=== PATIENT | female | born 1965 | race American Indian/Alaskan Native ===

== ENCOUNTER 2018-06-09 21:52 | Emergency (ER) | payer SELFPAY ==
[2018-06-09 23:58] LABS: Bilirubin,Urine NEG (Negative); Blood,Urine SM (Negative); Color,Urine Straw (Yellow); Mucus,Urine FEW /HPF; Protein,Urine <15 mg/dL mg/dL (Negative); Urobilinogen,Urine < 2.0 mg/dL (<2.0)
[2018-06-10] MEDS ORDERED: MACROBID PO ONE (00:46)
[2018-06-10] MEDS ORDERED: IBUPROFEN PO ONE (00:46)
[2018-06-10] MEDS ORDERED: PYRIDIUM PO ONE (00:47)
--- NOTE | 2018-06-10 00:51 | Emergency Department Report ---
ED Female HPI - General Chief complaint: Urogenital-Female Stated complaint: DIFFICULTY URINATING Time Seen by Provider: 06/10/18 00:45 Source: patient Mode of arrival: Ambulatory Limitations: No Limitations - History of Present Illness Initial comments: pt is a 52 y/o aaf who presents for dysuria frequency and urgency x 4 days with stinging with urination pt denies hematuria no fever no chills no n/v pain is 3/10 exacerbated by voiding relieved by nothing . Complaint: dysuria Onset/Timin -: days(s) Radiation: non-radiating Severity: moderate Severity scale (0 -10): 5 Consistency: intermittent Improves with: none Worsens with: urination Are you Now?: No Associated Symptoms: dysuria - Related Data Sexually active: No Previous Rx's Medication Instructions Recorded Last Taken Type Ibuprofen 800 mg PO TID PRN #30 tablet 06/10/18 Unknown Rx Nitrofurantoin Monohyd/M-Cryst 100 mg PO BID 7 Days #14 capsule 06/10/18 Unknown Rx [Macrobid 100 mg Capsule] Phenazopyridine [Pyridium] 200 mg PO TID 2 Days #6 tab 06/10/18 Unknown Rx Allergies Allergy/AdvReac Type Severity Reaction Status Date / Time No Known Allergies Allergy Unverified 06/09/18 21:54 ED Review of Systems ROS: Stated complaint: DIFFICULTY URINATING Other details as noted in HPI Constitutional: denies: chills, fever Eyes: denies: eye pain, eye discharge, vision change ENT: denies: ear pain, throat pain Respiratory: denies: cough, shortness of breath, wheezing Cardiovascular: denies: chest pain, palpitations Endocrine: no symptoms reported Gastrointestinal: denies: abdominal pain, nausea, diarrhea Genitourinary: dysuria, frequency. denies: urgency, discharge Musculoskeletal: denies: back pain, joint swelling, arthralgia Skin: denies: rash, lesions Neurological: denies: headache, weakness, paresthesias Psychiatric: denies: anxiety, depression Hematological/Lymphatic: denies: easy bleeding, easy bruising ED Past Medical Hx - Social History Smoking Status: Never Smoker - Medications Home Medications: Home Medications Medication Instructions Recorded Confirmed Last Taken Type Ibuprofen 800 mg PO TID PRN #30 tablet 06/10/18 Unknown Rx Nitrofurantoin Monohyd/M-Cryst 100 mg PO BID 7 Days #14 capsule 06/10/18 Unknown Rx [Macrobid 100 mg Capsule] Phenazopyridine [Pyridium] 200 mg PO TID 2 Days #6 tab 06/10/18 Unknown Rx ED Physical Exam - General Limitations: No Limitations General appearance: alert, in no apparent distress - Head Head exam: Present: atraumatic, normocephalic - Eye Eye exam: Present: normal appearance, PERRL, EOMI Pupils: Present: normal accommodation - ENT ENT exam: Present: mucous membranes moist - Neck Neck exam: Present: normal inspection, tenderness, full ROM - Respiratory Respiratory exam: Present: normal lung sounds bilaterally. Absent: respiratory distress, wheezes, stridor, chest wall tenderness - Cardiovascular Cardiovascular Exam: Present: regular rate, normal rhythm, normal heart sounds. Absent: systolic murmur, diastolic murmur, rubs, gallop - GI/Abdominal GI/Abdominal exam: Present: soft, normal bowel sounds. Absent: distended, tenderness, guarding, rebound, rigid, bruit, hernia - Rectal Rectal exam: Present: deferred - Extremities Exam Extremities exam: Present: normal inspection, full ROM. Absent: tenderness, pedal edema - Back Exam Back exam: Present: normal inspection, full ROM. Absent: tenderness, CVA tenderness (R), CVA tenderness (L), muscle spasm, paraspinal tenderness, rash noted - Neurological Exam Neurological exam: Present: alert, oriented X3 - Psychiatric Psychiatric exam: Present: normal affect, normal mood - Skin Skin exam: Present: warm, dry, intact, normal color. Absent: rash ED Course Vital Signs 06/09/18 06/09/18 22:09 22:28 Temperature 98.1 F 98.1 F Pulse Rate 95 H 95 H Respiratory 20 20 Rate Blood Pressure 144/76 Blood Pressure 144/76 [Right] O2 Sat by Pulse 98 98 Oximetry ED Medical Decision Making - Lab Data Lab Results 06/09/18 Range/Units 22:37 Urine Color Straw (Yellow) Urine Turbidity Clear (Clear) Urine pH 6.0 (5.0-7.0) Ur Specific Dickey 1.013 (1.003-1.030) Urine Protein <15 mg/dl (Negative) mg/dL Urine Glucose (UA) Neg (Negative) mg/dL Urine Ketones Neg (Negative) mg/dL Urine Blood Sm (Negative) Urine Nitrite Neg (Negative) Urine Bilirubin Neg (Negative) Urine Urobilinogen < 2.0 (<2.0) mg/dL Ur Leukocyte Esterase Mod (Negative) Urine WBC (Auto) 50.0 H (0.0-6.0) /HPF Urine RBC (Auto) 5.0 (0.0-6.0) /HPF U Epithel Cells (Auto) 1.0 (0-13.0) /HPF Urine Mucus Few /HPF - Medical Decision Making this is a uti plan. macrobid, pyridium , ibuprofen pt will follow up with pcp in 2-3 days return to ed if symptoms worsen, pt verbalized agreement and understanding of discharge plan, pt for dc to home in stable condition at this time with rx for pyridium macrobid ibuprofen, pt verbalized agreement and understanding with discharge plan. Critical care attestation.: If time is entered above; I have spent that time in minutes in the direct care of this critically ill patient, excluding procedure time. ED Disposition Clinical Impression: UTI (urinary tract infection) Qualifiers: Urinary tract infection type: acute cystitis Hematuria presence: without hematuria Qualified Code(s): N30.00 - Acute cystitis without hematuria Disposition: DC-01 TO HOME OR SELFCARE Is pt being admited?: No Does the pt Need Aspirin: No Condition: Stable Instructions: Urinary Tract Infection in Women (ED) Prescriptions: Ibuprofen 800 mg PO TID PRN #30 tablet PRN Reason: pain Nitrofurantoin Monohyd/M-Cryst [Macrobid 100 mg Capsule] 100 mg PO BID 7 Days #14 capsule Phenazopyridine [Pyridium] 200 mg PO TID 2 Days #6 tab Referrals: JALEEL RUIZ MD [Primary Care Provider] - 3-5 Days Forms: Work/School Release Form(ED) Time of Disposition: 01:00
[2018-06-10 01:31] VITALS: BP 135/69
== END 2018-06-10 01:32 | disposition home or self-care (01) ==
LOC: ED 21:52
DX: N30.00 Acute cystitis without hematuria (principal)
CPT/HCPCS: 81001; 99283

== ENCOUNTER 2018-08-25 12:52 | Emergency (ER) | payer OTHER ==
--- NOTE | 2018-08-25 13:49 | Emergency Department Report ---
Blank Doc - Documentation Documentation: 52 y o female presents to ed cc of right anklpe pain and swelling x 2 days states she must have twisted it at work able to ambulate xr ACC veal
[2018-08-25 13:52] VITALS: BP 146/76
--- NOTE | 2018-08-25 15:12 | Emergency Department Report ---
ED Lower Extremity HPI - General Chief Complaint: Extremity Injury, Lower Stated Complaint: RT FOOT PAIN Time Seen by Provider: 08/25/18 13:47 Source: patient Mode of arrival: Ambulatory Limitations: No Limitations - History of Present Illness Initial Comments: 52-year-old female who twisted her right ankle mild swelling mild pain MD Complaint: ankle injury -: days(s) (2) Injury: Ankle: Right Type of Injury: inversion, eversion Place: work Severity: mild Worsens With: weight bearing Associated Symptoms: swelling. denies: snap/pop sensation - Related Data Previous Rx's Medication Instructions Recorded Last Taken Type Ibuprofen [Ibuprofen 800] 800 mg PO TID PRN #30 tablet 06/10/18 Unknown Rx Nitrofurantoin Monohyd/M-Cryst 100 mg PO BID 7 Days #14 capsule 06/10/18 Unknown Rx [Macrobid 100 mg Capsule] Phenazopyridine [Pyridium] 200 mg PO TID 2 Days #6 tab 06/10/18 Unknown Rx Ibuprofen [Motrin 800 MG tab] 800 mg PO TID 5 Days #15 tablet 08/25/18 Unknown Rx Allergies Allergy/AdvReac Type Severity Reaction Status Date / Time No Known Allergies Allergy Verified 08/25/18 12:54 ED Review of Systems ROS: Stated complaint: RT FOOT PAIN Other details as noted in HPI Constitutional: denies: fever, malaise Skin: denies: rash, lesions Neurological: denies: numbness, paresthesias ED Past Medical Hx - Past Medical History Previous Medical History?: Yes Hx Hypertension: Yes - Surgical History Hx Cholecystectomy: Yes - Social History Smoking Status: Current Every Day Smoker Substance Use Type: None - Medications Home Medications: Home Medications Medication Instructions Recorded Confirmed Last Taken Type Ibuprofen [Ibuprofen 800] 800 mg PO TID PRN #30 tablet 06/10/18 Unknown Rx Nitrofurantoin Monohyd/M-Cryst 100 mg PO BID 7 Days #14 capsule 06/10/18 Unknown Rx [Macrobid 100 mg Capsule] Phenazopyridine [Pyridium] 200 mg PO TID 2 Days #6 tab 06/10/18 Unknown Rx Ibuprofen [Motrin 800 MG tab] 800 mg PO TID 5 Days #15 tablet 08/25/18 Unknown Rx ED Physical Exam - General Limitations: No Limitations General appearance: alert, in no apparent distress - Head Head exam: Present: atraumatic, normocephalic - Eye Eye exam: Present: normal appearance. Absent: scleral icterus, conjunctival injection - ENT ENT exam: Present: mucous membranes moist - Neck Neck exam: Present: normal inspection, full ROM - Respiratory Respiratory exam: Absent: respiratory distress - Expanded Lower Extremity Exam Right Ankle exam: Present: full ROM, tenderness, swelling. Absent: abrasion, laceration, ecchymosis, deformity, crepidus, dislocation, erythema, anterior draw sign Foot/Toe exam: Present: normal inspection, full ROM. Absent: tenderness Neuro vascular tendon exam: Present: no vascular compromise. Absent: pulse deficit ED Course Vital Signs 08/25/18 13:47 Temperature 98.2 F Pulse Rate 89 Respiratory 20 Rate Blood Pressure 146/76 O2 Sat by Pulse 99 Oximetry ED Lower Extremity MDM - Radiology Data Radiology results: image reviewed interpreted by me: Three-view ankle radiographs right my interpretation no fracture and no subluxation mild soft tissue swelling Mild right ankle sprain Chaz wrap provided in the ED. Chaz wrap was applied to the affected extremity under my supervision. After application the extremity was neurovascularly intact with acceptable alignment. Critical care attestation.: If time is entered above; I have spent that time in minutes in the direct care of this critically ill patient, excluding procedure time. ED Disposition Clinical Impression: Right ankle sprain Disposition: - TO HOME OR SELFCARE Is pt being admited?: No Does the pt Need Aspirin: No Condition: Stable Prescriptions: Ibuprofen [Motrin 800 MG tab] 800 mg PO TID 5 Days #15 tablet Referrals: ANGELIQUE HOLM MD [Staff Physician] - 3-5 Days
--- NOTE | 2018-08-25 15:13 | XRay Report ---
PROCEDURE: XR ANKLE 3+V RT TECHNIQUE: Right ankle radiographs, AP, lateral, and oblique views. HISTORY: pain COMPARISONS: None . FINDINGS: No fracture or dislocation. Ankle mortise and talar dome are intact. IMPRESSION: No fracture or dislocation . This document is electronically signed by Anai Sears MD., August 25 2018 04:10:40 PM ET
== END 2018-08-25 16:13 | disposition home or self-care (01) ==
LOC: ED 12:52
DX: S93.401A Sprain of unspecified ligament of right ankle, initial encounter (principal); I10 Essential (primary) hypertension; F17.200 Nicotine dependence, unspecified, uncomplicated; Z90.49 Acquired absence of other specified parts of digestive tract; X50.1XXA Overexertion from prolonged static or awkward postures, initial encounter; Y93.89 Activity, other specified; Y92.69 Other specified industrial and construction area as the place of occurrence of the external cause; Y99.8 Other external cause status

== ENCOUNTER 2020-01-07 07:29 | Day surgery (SDC) | payer OTHER ==
[2020-01-07] MEDS ORDERED: ASPIRIN EC 325 MG TAB PO ONE (08:19)
[2020-01-07 08:45] LABS: Basophils % (Auto) 0.5 % (0.0-1.8); Eosinophils # (Auto) 0.1 K/mm3 (0.0-0.4); Hematocrit 39.6 % (30.3-42.9); Hemoglobin 13.3 gm/dl (10.1-14.3); Lymphocytes # (Auto) 1.7 K/mm3 (1.2-5.4); Lymphocytes % (Auto) 29.8 % (13.4-35.0); Mean Corpuscular HGB Conc 34 % (30-34); Mean Corpuscular Volume 87 fl (79-97); Monocytes # (Auto) 0.7 K/mm3 (0.0-0.8); Platelet Count 311 K/mm3 (140-440); Red Blood Count 4.53 M/mm3 (3.65-5.03); Red Cell Distribution Width 15.2 % (13.2-15.2)
[2020-01-07 08:54] LABS: INR 0.91 (0.87-1.13)
[2020-01-07 08:56] LABS: Partial Thromboplastin Time 25.6 Sec. (24.2-36.6)
[2020-01-07 08:59] LABS: BUN/Creatinine Ratio 17; Blood Urea Nitrogen 10 mg/dL (7-17); Calcium 9.5 mg/dL (8.4-10.2); Hemolysis Index 4
[2020-01-07] MEDS ORDERED: SODIUM CHLORIDE 0.9% 500 ML 500 ML IV SCH (09:00)
[2020-01-07] MEDS ORDERED: MIDAZOLAM 2 MG/2 ML INJ ONE (09:53)
[2020-01-07] MEDS ORDERED: HEPARIN 10,000 UNITS/10 ML VIAL ONE (09:53)
[2020-01-07] MEDS ORDERED: VERAPAMIL 5 MG/2 ML INJ ONE (09:53)
[2020-01-07] MEDS ORDERED: HEPARIN/NS 5000 UNIT/500ML 1,000 ML IR ONE (09:53)
[2020-01-07] MEDS ORDERED: fentaNYL 100 MCG/2 ML INJ ONE (09:53)
[2020-01-07] MEDS ORDERED: LIDOCAINE (2%) 20 MG/1 ML VIAL 20 ML MDV INFILTRATI ONE (09:54)
[2020-01-07] MEDS: NITROGLYCERIN SYRINGE 3 ML ONE ×2 (10:38→10:50)
--- NOTE | 2020-01-07 11:20 | Cardiac Catherization Report ---
REFERRING PHYSICIAN: Praveen Hernández MD INDICATION FOR PROCEDURE: The patient is a pleasant 54-year-old female with multiple risk factors, abnormal nuclear stress test, referred for left heart catheterization. Risks, benefits, potential alternatives explained at length prior to obtaining informed consent. PROCEDURE IN DETAIL: The patient was brought to catheterization lab in a postabsorptive state, prepped and draped in sterile fashion. Fredo's test in right hand was normal. A 2 mL of 2% lidocaine used to anesthetize the right wrist. A standard 6-Nepali hydrophilic sheath used to cannulate the right radial artery via modified Seldinger technique. A JL3.5 catheter used to engage the left main. No dampening or ventricularization. Cineangiography performed in all projections. JR4 catheter was used to cross the aortic valve under fluoroscopic guidance. Left ventriculography performed in 30 CARTAGENA and 30 LATVIAN projections via hand injections, catheter flushed. Manual pullback performed with continuous pressure monitoring. Catheter used to engage the right coronary. No dampening or ventricularization. Cineangiography performed in all projections. Next, catheter removed from the body of wire, sheath removed. Manual pressure was used to achieve hemostasis. DATA: The patient remained in normal sinus rhythm throughout the procedure. Aortic pressure is 140/80, LV pressure is 140, LVP of 12 mmHg. Left ventriculography reveals normal systolic performance, estimated ejection fraction of 55-60%. No evidence of aortic stenosis or significant mitral regurgitation. CORONARY ANATOMY: This is a right dominant system. Right coronary is a moderate to large vessel, courses AV groove, distally bifurcates into posterior descending artery and posterolateral branch. No disease noted. Left main is without significant disease, bifurcates into left anterior descending and left circumflex. Left circumflex is a moderate sized vessel, courses AV groove, diminutive to AV groove, circ, large OM trunk. No significant disease. LAD is a moderate sized vessel, courses anterior intergroove, wraps around the apex, no significant disease, but there is normal tapering in a distal LAD, which is a small vessel, but no obstructive disease identified. No diagonal disease noted. CONCLUSIONS: 1. No angiographic evidence of significant epicardial coronary disease in this right dominant system. 2. Normal left ventricular systolic performance with estimated ejection fraction of 55-60%. 3. No evidence of aortic stenosis. 4. Normal LVEDP. The patient is clinically stable, chest pain free. Would add Ranexa to rule out microvascular angina. Continue risk factor modification, weight loss, diet modification, primary and secondary prevention measures, standard radial care. Results of procedure explained to the patient at length. All questions addressed. Follow up with Dr. Hernández in the office. JOB# [id number] SBM/NTS
[2020-01-07 14:01] VITALS: BP 116/66
--- NOTE | 2020-01-07 14:19 | Short Stay Summary ---
Short Stay Documentation Date of service: 01/07/20 - History H&P: obtained from office - Allergies and Medications Current Medications: Allergies No Known Allergies Allergy (Verified 08/25/18 12:54) Home Medications Medication Instructions Recorded Confirmed Last Taken Type Aspirin EC [Halfprin EC] 81 mg PO DAILY 01/07/20 01/07/20 01/06/20 History 81 mg Lisinopril/Hydrochlorothiazide 25 mg PO DAILY 01/07/20 01/07/20 01/06/20 History [Zestoretic 10-12.5 mg Tablet] 25 mg Metoprolol SUCCINATE ER TAB 25 mg PO DAILY 01/07/20 01/07/20 01/06/20 History 25 mg Ranolazine [Ranexa] 500 mg PO BID #120 tab.er.12h 01/07/20 Unknown Rx Active Medications Sodium Chloride (Nacl 0.9% 500 Ml) 500 mls @ 50 mls/hr IV DIRECT ILIANA Stop: 01/07/20 18:59 Last Admin: 01/07/20 09:34 Dose: 50 mls/hr Documented by: - Brief post op/procedure progress note Date of procedure: 01/07/20 Pre-op diagnosis: abnormal stress test Post-op diagnosis: other (normal coronaries) Anesthesia: local Estimated blood loss: none Condition: stable - Disposition Condition at discharge: Good Disposition: DC-01 TO HOME OR SELFCARE - Discharge Diagnoses (1) Normal coronary angiogram Status: Chronic (2) HTN (hypertension) Status: Chronic (3) Paroxysmal atrial fibrillation Status: Chronic Short Stay Discharge Plan Activity: advance as tolerated Diet: low fat, low cholesterol, low salt Wound: open to air, keep clean and dry, per your surgeon's advice Additional Instructions: follow upwith Primary Medical Doctor in 1 week, return to Emergency Room (ER) for medical emergencies. Follow up with: JALEEL RUIZ MD [Primary Care Provider] - 7 Days Prescriptions: Ranolazine [Ranexa] 500 mg PO BID #120 tab.er.12h
== END 2020-01-07 07:30 | disposition home or self-care (01) ==
LOC: CATHLABREC 07:29
PROVIDERS: ATTEND Internal Medicine
DX: R94.39 Abnormal result of other cardiovascular function study (principal); I10 Essential (primary) hypertension; I48.0 Paroxysmal atrial fibrillation; E66.9 Obesity, unspecified; Z98.890 Other specified postprocedural states; Z83.3 Family history of diabetes mellitus; Z79.899 Other long term (current) drug therapy; Z79.82 Long term (current) use of aspirin; Z90.49 Acquired absence of other specified parts of digestive tract; Z87.440 Personal history of urinary (tract) infections; Z87.442 Personal history of urinary calculi; Z68.43 Body mass index [BMI] 50.0-59.9, adult; Z82.49 Family history of ischemic heart disease and other diseases of the circulatory system
CPT/HCPCS: 36415; 80048; 85025; 85610; 85730; 93005; 93458; 99156; C1894; J1644; J2250; J3010; J7040; Q9967

== ENCOUNTER 2021-01-06 15:07 | Emergency (ER) | payer OTHER ==
[2021-01-06] MEDS ORDERED: ONDANSETRON 4 MG/2 ML INJ IV ONE (16:17)
[2021-01-06] MEDS ORDERED: SODIUM CHLORIDE 0.9% 1000 ML 1,000 ML IV ONE (16:17)
[2021-01-06 16:46] LABS: Basophils # (Auto) 0.1 K/mm3 (0.0-0.1); Basophils % (Auto) 0.8 % (0.0-1.8); Eosinophils # (Auto) 0.1 K/mm3 (0.0-0.4); Eosinophils % (Auto) 0.7 % (0.0-4.3); Hematocrit 43.1 % (30.3-42.9); Hemoglobin 14.6 gm/dl (10.1-14.3); Lymphocytes # (Auto) 1.4 K/mm3 (1.2-5.4); Lymphocytes % (Auto) 17.5 % (13.4-35.0); Mean Corpuscular HGB Conc 34 % (30-34); Mean Corpuscular Volume 88 fl (79-97); Monocytes # (Auto) 1.2 K/mm3 (0.0-0.8); Monocytes % (Auto) 15.1 % (0.0-7.3); Platelet Count 309 K/mm3 (140-440); Red Blood Count 4.92 M/mm3 (3.65-5.03); Red Cell Distribution Width 14.2 % (13.2-15.2)
[2021-01-06 17:05] LABS: Alanine Aminotransferase 22 units/L (7-56); Albumin 3.8 g/dL (3.9-5); Blood Urea Nitrogen 15 mg/dL (7-17); Calcium 9.5 mg/dL (8.4-10.2); Hemolysis Index 12
[2021-01-06 17:13] LABS: BUN/Creatinine Ratio 25
[2021-01-06] MEDS ORDERED: POTASSIUM CHLORIDE 10 MEQ 10 MEQ/100 ML BAG IV ONE (17:18)
--- NOTE | 2021-01-06 17:23 | Event Note ---
ED Screening Note Date of service: 01/06/21 Time: 17:21 ED Screening Note: 55-year-old -Y[place] female presents to the emergency room planing of nausea and vomiting since having outpatient gastro sleeve surgery on December 31. Patient states at that time she had a hernia repair. She reports a past medical history of hypertension obesity. She denies any abdominal pain. States that the Zofran they gave her is not helping. She denies any fever or chills. This initial assessment/diagnostic orders/clinical plan/treatment(s) is/are subject to change based on patients health status, clinical progression and re- assessment by fellow clinical providers in the ED. Further treatment and workup at subsequent clinical providers discretion. Patient/guardian urged not to elope from the ED as their condition may be serious if not clinically assessed and managed. Initial orders include: CBC CMP urinalysis INT IV Zofran IV fluids
[2021-01-06 18:03] LABS: Bacteria,Urine 3+ /HPF (Negative); Bilirubin,Urine NEG (Negative); Blood,Urine SM (Negative); Color,Urine Straw (Yellow); Hyaline Casts,Urine 4 /LPF; Mucus,Urine FEW /HPF; Protein,Urine <15 mg/dL mg/dL (Negative); Urobilinogen,Urine < 2.0 mg/dL (<2.0)
--- NOTE | 2021-01-06 18:07 | Emergency Department Report ---
ED N/V/D HPI - General Chief complaint: Nausea/Vomiting/Diarrhea Stated complaint: POST SURGERY, PAIN VOMITING Time Seen by Provider: 01/06/21 16:17 Source: patient Mode of arrival: Ambulatory Limitations: No Limitations - History of Present Illness Initial comments: The patient was evaluated in the emergency department for symptoms described in the history of present illness. He/she was evaluated in the context of the global COVID-19 pandemic, which necessitated consideration that the patient might be at risk for infection with the virus that causes COVID-19. Institutional protocols and algorithms that pertain to the evaluation of patients at risk for COVID-19 are in a state of rapid change based on information released by regulatory bodies including the CDC and federal and state organizations. These policies and algorithms were followed during the patient's care in the emergency department. Please note that these policies, procedures and recommendations changed on a rapid basis. 55-year-old -[place] female presents to the emergency room planing of nausea and vomiting since having outpatient gastro sleeve surgery and hiatal hernia repair on December 31. She reports a past medical history of hypertension and obesity. She denies any abdominal pain. States that the Zofran they gave her is not helping and Levsin. She denies any fever or chills. MD complaint: nausea, vomiting Onset/Timin -: week(s) Description of Vomiting: food contents, watery, bilious Associated Abdominal Pain: No Improves with: none Worsens with: eating Associated Symptoms: nausea/vomiting. denies: chest pain, cough, fever/chills, shortness of breath, syncope - Related Data Home Medications Medication Instructions Recorded Confirmed Last Taken Lisinopril/Hydrochlorothiazide 25 mg PO DAILY 01/07/20 01/06/21 01/06/21 [Zestoretic 10-12.5 mg Tablet] 1 tab Metoprolol SUCCINATE ER TAB 25 mg PO DAILY 01/07/20 01/06/21 01/06/21 25 mg Hyoscyamine Rapdis 0.125 mg 1 tab SL 6XD PRN 01/06/21 01/06/21 01/05/21 1 tab Tramadol ER (Nf) 1 tab PO 4XD PRN 01/06/21 01/06/21 Unknown Tylenol /Codeine # 3 tab 1 tab PO 4XD PRN 01/06/21 01/06/21 Unknown Allergies Allergy/AdvReac Type Severity Reaction Status Date / Time No Known Allergies Allergy Verified 01/06/21 15:13 ED Review of Systems ROS: Stated complaint: POST SURGERY, PAIN VOMITING Other details as noted in HPI Comment: All other systems reviewed and negative ED Past Medical Hx - Past Medical History Hx Hypertension: Yes Hx Congestive Heart Failure: No Hx Diabetes: No Hx Kidney Stones: Yes - Surgical History Hx Coronary Stent: No Hx Cholecystectomy: Yes - Social History Smoking Status: Never Smoker Substance Use Type: None - Medications Home Medications: Home Medications Medication Instructions Recorded Confirmed Last Taken Type Lisinopril/Hydrochlorothiazide 25 mg PO DAILY 01/07/20 01/06/21 01/06/21 History [Zestoretic 10-12.5 mg Tablet] 1 tab Metoprolol SUCCINATE ER TAB 25 mg PO DAILY 01/07/20 01/06/21 01/06/21 History 25 mg Hyoscyamine Rapdis 0.125 mg 1 tab SL 6XD PRN 01/06/21 01/06/21 01/05/21 History 1 tab Tramadol ER (Nf) 1 tab PO 4XD PRN 01/06/21 01/06/21 Unknown History Tylenol /Codeine # 3 tab 1 tab PO 4XD PRN 01/06/21 01/06/21 Unknown History ED Physical Exam - General Limitations: No Limitations General appearance: alert, in no apparent distress - Head Head exam: Present: atraumatic, normocephalic - Eye Eye exam: Present: normal appearance - ENT ENT exam: Present: mucous membranes moist - Neck Neck exam: Present: normal inspection - Respiratory Respiratory exam: Present: normal lung sounds bilaterally. Absent: respiratory distress - Cardiovascular Cardiovascular Exam: Present: regular rate, normal rhythm. Absent: systolic murmur, diastolic murmur, rubs, gallop - GI/Abdominal GI/Abdominal exam: Present: soft, normal bowel sounds. Absent: distended, tenderness, guarding - Extremities Exam Extremities exam: Present: normal inspection. Absent: pedal edema - Back Exam Back exam: Present: normal inspection, full ROM - Neurological Exam Neurological exam: Present: alert, oriented X3, CN II-XII intact, normal gait - Psychiatric Psychiatric exam: Present: normal affect, normal mood - Skin Skin exam: Present: warm, dry, intact, normal color. Absent: rash ED Course Vital Signs 01/06/21 01/06/21 01/06/21 15:11 16:06 16:17 Temperature 98.5 F Pulse Rate 111 H 89 Respiratory 18 18 18 Rate Blood Pressure 147/74 Blood Pressure [Left] O2 Sat by Pulse 99 99 Oximetry 01/06/21 01/06/21 01/06/21 16:18 17:01 18:01 Temperature Pulse Rate 95 H 88 94 H Respiratory 19 22 19 Rate Blood Pressure 132/78 130/68 Blood Pressure 132/78 [Left] O2 Sat by Pulse 100 100 97 Oximetry 01/06/21 19:01 Temperature Pulse Rate 95 H Respiratory 17 Rate Blood Pressure 129/68 Blood Pressure [Left] O2 Sat by Pulse Oximetry - Consultations Consultation #1: 01/06/21 19:[address]Amir Medrano patient surgery he recommends replacing her electrolytes possibly with thiamine or banana bag. States for her to take Levsin Zofran and to follow-up with his clinic the next 2 to 3 days. ED Medical Decision Making - Lab Data Result diagrams: 01/06/21 16:30 01/06/21 16:30 - Medical Decision Making 55-year-old -[place] female presents to the emergency room planing of nausea and vomiting since having outpatient gastro sleeve surgery and hiatal hernia repair on December 31. She reports a past medical history of hypertension and obesity. She denies any abdominal pain. States that the Zofran they gave her is not helping and Levsin. She denies any fever or chills. CBC CMP lipase urinalysis. Spoke to Dr.Amir Medrano patient surgery he recommends replacing her electrolytes possibly with thiamine or banana bag. States for her to take Levsin Zofran and to follow-up with his clinic the next 2 to 3 days. It was noted that patient's potassium was 2.7. Will correct with banana bag. And Zofran. Critical care attestation.: If time is entered above; I have spent that time in minutes in the direct care of this critically ill patient, excluding procedure time. ED Disposition Clinical Impression: Nausea & vomiting Disposition: 01 HOME / SELF CARE / HOMELESS Is pt being admited?: No Does the pt Need Aspirin: No Condition: Stable Instructions: Nausea and Vomiting, Adult, Bmna-mt-Demy Additional Instructions: Please be sure to take your medications and your supplements. Follow-up with your surgeon in the next 2 to 3 days. Referrals: Nanda Sow [Other] - 3-5 Days Forms: Work/School Release Form(ED)
[2021-01-06] MEDS ORDERED: THIAMINE 100 MG, FOLIC ACID 1 MG, MULTIPLE VITAMIN INJ, ADULT 10 ML in SODIUM CHLORIDE ... IV ONE (19:00)
[2021-01-06 20:47] VITALS: BP 143/67
== END 2021-01-06 20:46 | disposition home or self-care (01) ==
LOC: ED 15:07
DX: R11.2 Nausea with vomiting, unspecified (principal); I10 Essential (primary) hypertension; Z87.442 Personal history of urinary calculi; Z98.890 Other specified postprocedural states
CPT/HCPCS: 36415; 80053; 81001; 83690; 85025; 96361; 96365; 96366; 96375; 99283; J2405; J3411; J3480; J7030; 96368

== ENCOUNTER 2021-01-10 23:48 | Emergency (ER) | payer OTHER ==
[2021-01-11] MEDS ORDERED: FAMOTIDINE 20 MG/2 ML INJ IV ONE (00:41)
[2021-01-11] MEDS ORDERED: PROCHLORPERAZINE EDISYLATE 10 MG/2 ML VIAL IV ONE (00:41)
[2021-01-11] MEDS ORDERED: SODIUM CHLORIDE 0.9% 1000 ML 1,000 ML IV ONE (00:41)
[2021-01-11] MEDS ORDERED: diphenhydrAMINE 50 MG/ML VIAL IV ONE (00:41)
--- NOTE | 2021-01-11 00:44 | Event Note ---
ED Screening Note Date of service: 01/11/21 Time: 00:42 ED Screening Note: 55-year-old female patient (post-op day #12 s/p gastric sleeve surgery) with history of hypertension presents to the emergency department with complaints of progressively worsening chest pain, nausea, and vomiting. Patient was evaluated in this ED for similar symptoms last week. Surgery was performed on 12/30/20 at a "private hospital." Taking Zofran at home with no relief. General: Awake, appropriately interactive. Moaning, rocking back and forth. Neck: Supple. Full range of motion intact. Cardiovascular: Normal peripheral perfusion. Pulmonary: No respiratory distress. Patient is speaking normally without use of accessory muscles. Skin: No apparent rashes or lesions. Neurological: No facial asymmetry. Speech is clear. Follows commands. Patient is alert and oriented. Musculoskeletal: Moves all four extremities spontaneously with normal range of motion. Psych: Cooperative. Appropriate mood and affect. Labs ordered. EKG ordered. IV fluids and antiemetics ordered. Imaging deferred to additional ED providers following full history and complete physical exam. I have greeted and performed a focused rapid initial assessment of this patient. A comprehensive ED assessment and evaluation of the patient, analysis of all test results, and completion of the medical decision-making process will be conducted by additional ED providers. This initial assessment/diagnostic orders/clinical plan/treatment(s) is/are subject to change based on patients health status, clinical progression and re-assessment. Further treatment and workup at subsequent clinical provider's discretion. Patient/guardian urged not to elope from the ED as their condition may be serious if not clinically assessed and managed.
[2021-01-11 00:59] LABS: Basophils # (Auto) 0.1 K/mm3 (0.0-0.1); Basophils % (Auto) 0.9 % (0.0-1.8); Eosinophils % (Auto) 0.1 % (0.0-4.3); Hematocrit 41.7 % (30.3-42.9); Hemoglobin 14.3 gm/dl (10.1-14.3); Lymphocytes # (Auto) 1.3 K/mm3 (1.2-5.4); Lymphocytes % (Auto) 20.3 % (13.4-35.0); Mean Corpuscular HGB Conc 34 % (30-34); Mean Corpuscular Volume 86 fl (79-97); Monocytes # (Auto) 0.6 K/mm3 (0.0-0.8); Monocytes % (Auto) 10.4 % (0.0-7.3); Platelet Count 362 K/mm3 (140-440); Red Blood Count 4.85 M/mm3 (3.65-5.03); Red Cell Distribution Width 14.2 % (13.2-15.2)
[2021-01-11 01:24] LABS: Alanine Aminotransferase 20 units/L (7-56); Albumin 4.4 g/dL (3.9-5); BUN/Creatinine Ratio 11; Blood Urea Nitrogen 10 mg/dL (7-17); Calcium 10.2 mg/dL (8.4-10.2); Hemolysis Index 2
--- NOTE | 2021-01-11 01:49 | XRay Report ---
CHEST 1 VIEW 01/11/2021 12:31 AM INDICATION / CLINICAL INFORMATION: chest pain. COMPARISON: None available. FINDINGS: SUPPORT DEVICES: None. HEART / MEDIASTINUM: No significant abnormality. LUNGS / PLEURA: No significant pulmonary or pleural abnormality. No pneumothorax. ADDITIONAL FINDINGS: Multiple surgical clips are noted in the upper abdomen. IMPRESSION: 1. No acute findings. Signer Name: Sarkis Thomason DO Signed: 01/11/2021 1:45 AM Workstation Name: [id number]
[2021-01-11] MEDS ORDERED: POTASSIUM CHLORIDE ER 20 MEQ TAB PO ONE (02:26)
--- NOTE | 2021-01-11 04:09 | Emergency Department Report ---
ED N/V/D HPI - General Chief complaint: Nausea/Vomiting/Diarrhea Stated complaint: VOMITING THROAT BURNING GENERAL WEAKNESS Time Seen by Provider: 01/11/21 02:03 Source: patient Mode of arrival: Ambulatory Limitations: No Limitations - History of Present Illness Initial comments: 55-year-old female presents to ED with nausea, vomiting, throat burning. Patient is status post gastric sleeve and hernia repair surgery on 12/30/2020. Patient was seen for same here in this ED 4 days ago. At that time patient was given IV fluids, potassium, pain relief and nausea relief. Patient states she has an appointment with her surgeon, Dr Nichole, in the morning, however she began having nausea and vomiting again tonight. Patient feels as though she may be dehydrated. MD complaint: nausea, vomiting -: Last night Associated Abdominal Pain: No Severity: moderate Consistency: constant Improves with: none Worsens with: none Context: recent surgery/procedure Associated Symptoms: denies: fever/chills - Related Data Home Medications Medication Instructions Recorded Confirmed Last Taken Lisinopril/Hydrochlorothiazide 25 mg PO DAILY 01/07/20 01/06/21 01/06/21 [Zestoretic 10-12.5 mg Tablet] 1 tab Metoprolol SUCCINATE ER TAB 25 mg PO DAILY 01/07/20 01/06/21 01/06/21 25 mg Hyoscyamine Rapdis 0.125 mg 1 tab SL 6XD PRN 01/06/21 01/06/21 01/05/21 1 tab Tramadol ER (Nf) 1 tab PO 4XD PRN 01/06/21 01/06/21 Unknown Tylenol /Codeine # 3 tab 1 tab PO 4XD PRN 01/06/21 01/06/21 Unknown Allergies Allergy/AdvReac Type Severity Reaction Status Date / Time No Known Allergies Allergy Verified 01/06/21 15:13 ED Review of Systems ROS: Stated complaint: VOMITING THROAT BURNING GENERAL WEAKNESS Other details as noted in HPI Comment: All other systems reviewed and negative Constitutional: denies: fever Gastrointestinal: nausea, vomiting. denies: diarrhea ED Past Medical Hx - Past Medical History Hx Hypertension: Yes Hx Congestive Heart Failure: No Hx Diabetes: No Hx Kidney Stones: Yes - Surgical History Hx Coronary Stent: No Hx Cholecystectomy: Yes Additional Surgical History: gastric sleeve, hernia repair - Social History Smoking Status: Never Smoker Substance Use Type: None - Medications Home Medications: Home Medications Medication Instructions Recorded Confirmed Last Taken Type Lisinopril/Hydrochlorothiazide 25 mg PO DAILY 01/07/20 01/06/21 01/06/21 History [Zestoretic 10-12.5 mg Tablet] 1 tab Metoprolol SUCCINATE ER TAB 25 mg PO DAILY 01/07/20 01/06/21 01/06/21 History 25 mg Hyoscyamine Rapdis 0.125 mg 1 tab SL 6XD PRN 01/06/21 01/06/21 01/05/21 History 1 tab Tramadol ER (Nf) 1 tab PO 4XD PRN 01/06/21 01/06/21 Unknown History Tylenol /Codeine # 3 tab 1 tab PO 4XD PRN 01/06/21 01/06/21 Unknown History ED Physical Exam - General Limitations: No Limitations General appearance: alert, in no apparent distress - Head Head exam: Present: atraumatic, normocephalic - Eye Eye exam: Present: normal appearance, EOMI - ENT ENT exam: Present: mucous membranes moist - Neck Neck exam: Present: normal inspection - Respiratory Respiratory exam: Present: normal lung sounds bilaterally. Absent: respiratory distress - Cardiovascular Cardiovascular Exam: Present: regular rate, normal rhythm - GI/Abdominal GI/Abdominal exam: Present: soft. Absent: distended, tenderness - Extremities Exam Extremities exam: Present: normal inspection - Neurological Exam Neurological exam: Present: alert, oriented X3 - Psychiatric Psychiatric exam: Present: normal affect, normal mood - Skin Skin exam: Present: warm, dry, intact, normal color ED Course Vital Signs 01/11/21 00:20 Temperature 97.8 F Pulse Rate 99 H Respiratory 22 Rate Blood Pressure 112/59 O2 Sat by Pulse 100 Oximetry ED Medical Decision Making - Lab Data Result diagrams: 01/11/21 00:44 01/11/21 00:44 - Medical Decision Making 55-year-old female status post gastric sleeve and hernia repair presents to ED with nausea and vomiting. Patient was seen for same 4 days ago as well. Patient has appointment with her surgeon in the morning. Labs show improvement in her hypokalemia, however potassium remains low. Patient was given pain and nausea relief. Potassium was repleted as well. Patient states she is feeling much better at this time. She feels comfortable with discharge home. Return precautions given. Critical care attestation.: If time is entered above; I have spent that time in minutes in the direct care of this critically ill patient, excluding procedure time. ED Disposition Clinical Impression: Nausea & vomiting, Hypokalemia Disposition: 01 HOME / SELF CARE / HOMELESS Is pt being admited?: No Condition: Stable Instructions: Nausea and Vomiting, Adult, [id number] Referrals: PRIMARY [facility] [Referring] - 01/11/21 Time of Disposition: 04:10
[2021-01-11 04:29] VITALS: BP 143/71
== END 2021-01-11 04:30 | disposition home or self-care (01) ==
LOC: ED 23:48
DX: E87.6 Hypokalemia (principal); R11.2 Nausea with vomiting, unspecified; I10 Essential (primary) hypertension; Z87.442 Personal history of urinary calculi; Z98.890 Other specified postprocedural states
CPT/HCPCS: 36415; 71045; 80053; 83690; 83735; 84100; 84484; 85025; 96361; 96374; 96375; 99284; J0780; J1200; J7030

== ENCOUNTER 2021-12-03 19:23 | Observation (INO) | payer OTHER ==
[2021-12-03] MEDS ORDERED: SODIUM CHLORIDE 0.9% 1000 ML 1,000 ML ONE (20:26)
[2021-12-03] MEDS ORDERED: ASPIRIN 325 MG TAB PO ONE (21:18)
[2021-12-03] MEDS ORDERED: SODIUM CHLORIDE 0.9% 1000 ML 1,000 ML IV ONE (21:18)
--- NOTE | 2021-12-03 21:57 | XRay Report ---
CHEST 1 VIEW 12/03/2021 8:47 PM INDICATION / CLINICAL INFORMATION: Chest Pain. COMPARISON: None available. FINDINGS: SUPPORT DEVICES: None. HEART / MEDIASTINUM: No significant abnormality. LUNGS / PLEURA: Mild increased pulmonary vascularity No pneumothorax. ADDITIONAL FINDINGS: No significant additional findings. IMPRESSION: 1. No acute findings. Signer Name: Oswald Chester MD Signed: 12/03/2021 9:52 PM Workstation Name: [id number]
[2021-12-03 22:13] LABS: Mucus,Urine FEW /HPF
[2021-12-03 22:20] LABS: Color,Urine Yellow (Yellow)
[2021-12-03 22:26] LABS: Amphetamine Screen,Urine Negative; Benzodiazepines Screen,Urine Negative; Cannabinoid Screen,Urine Negative; Cocaine Screen,Urine Negative; Methadone Screen,Urine Negative; Opiate Screen,Urine Negative
[2021-12-03 22:41] LABS: Hematocrit 36.9 % (30.3-42.9); Hemoglobin 11.5 gm/dl (10.1-14.3); Mean Corpuscular HGB Conc 31 % (30-34); Mean Corpuscular Volume 78 fl (79-97); Platelet Count 314 K/mm3 (140-440); Red Blood Count 4.72 M/mm3 (3.65-5.03); Red Cell Distribution Width 18.8 % (13.2-15.2)
[2021-12-03 22:45] LABS: Creatine Kinase MB 2.9 ng/mL (0.0-4.0)
[2021-12-03 22:47] LABS: Alanine Aminotransferase 13 units/L (7-56); Albumin 3.9 g/dL (3.9-5); BUN/Creatinine Ratio 11; Blood Urea Nitrogen 9 mg/dL (7-17); Calcium 8.9 mg/dL (8.4-10.2); Hemolysis Index 5
[2021-12-03 22:48] LABS: INR 0.88 (0.87-1.13)
[2021-12-03] MEDS ORDERED: METOPROLOL TARTRATE 5 MG/5 ML INJ IV ONE (23:21)
[2021-12-04] LABS: Basophils % (Manual) 0 % (0.0-1.8); Eosinophils % (Manual) 0 % (0.0-4.3); Total Cells Counted 100
[2021-12-04 00:01] LABS: Anisocytosis 1+; Hypochromasia 1+; Ovalocytes Few; Platelet Estimate Consistent w Auto; Tear Drop Cells Rare
--- NOTE | 2021-12-04 02:31 | Cat Scan Report ---
CTA CHEST WITH CONTRAST INDICATION / CLINICAL INFORMATION: SOB. TECHNIQUE: Axial CT images were obtained through the chest after injection of IV contrast. 3 plane VT P and/or 3D reconstructions were produced. All CT scans at this location are performed using CT dose reduction for ALARA by means of automated exposure control. COMPARISON: None available. FINDINGS: VASCULAR FINDINGS: PULMONARY ARTERY: Pulmonary artery is normal in size. No filling defects are present compatible with pulmonary artery embolus.. THORACIC AORTA: No significant abnormality. CORONARY ARTERY CALCIFICATION: Absent -- None. NONVASCULAR FINDINGS: LOWER NECK: Soft tissues and musculature of the lower neck demonstrate no significant abnormality. Th e thyroid demonstrates no significant abnormality. HEART: No significant abnormality. MEDIASTINUM / HERON: No significant abnormality. Small amount of residual thymus suggested within the anterior mediastinum. ESOPHAGUS: No significant abnormality. LYMPH NODES: No adenopathy within the axilla, mediastinum, or heron. LUNGS: No acute air space or interstitial disease. PLEURA: No pleural effusion. No pneumothorax. THORACIC SOFT TISSUES: No significant abnormality of the chest wall or upper thoracic musculature. BONES: Nonspecific sclerotic focus of bone adjacent the right pedicle of L1. No other osseous lesions . ADDITIONAL CHEST FINDINGS: None. UPPER ABDOMEN: Prior cholecystectomy. Suture lines along the stomach suggesting possible bariatric marin rgery. Small hiatal hernia. IMPRESSION: 1. No CT evidence for pulmonary embolism. 2. No acute findings. Signer Name: Derick Knapp II, MD Signed: 12/04/2021 2:27 AM Workstation Name: [id number]
[2021-12-04 03:36] LABS: HDL Cholesterol 74 mg/dL (40-59); LDL Cholesterol,Direct 97 mg/dL (50-130)
--- NOTE | 2021-12-04 04:58 | Emergency Department Report ---
ED Chest Pain HPI - General Chief Complaint: Chest Pain Stated Complaint: CHEST PAIN/SOB PUI?: No Time Seen by Provider: 12/03/21 21:11 Source: patient Mode of arrival: Stretcher Limitations: No Limitations - History of Present Illness Initial Comments: Chestpain started around 1800 when urinating in bathroom. Episode of SVT when EMS arrived that resolved. -: Gradual, hour(s) Onset: other (while urinating) Pain Radiation: none Consistency: intermittent - Related Data Home Medications Medication Instructions Recorded Confirmed Last Taken Lisinopril/Hydrochlorothiazide 25 mg PO DAILY 01/07/20 01/06/21 01/06/21 [Zestoretic 10-12.5 mg Tablet] 1 tab Metoprolol SUCCINATE ER TAB 25 mg PO DAILY 01/07/20 01/06/21 01/06/21 25 mg Hyoscyamine Rapdis 0.125 mg 1 tab SL 6XD PRN 01/06/21 01/06/21 01/05/21 1 tab Tramadol ER (Nf) 1 tab PO 4XD PRN 01/06/21 01/06/21 Unknown Tylenol /Codeine # 3 tab 1 tab PO 4XD PRN 01/06/21 01/06/21 Unknown Allergies Allergy/AdvReac Type Severity Reaction Status Date / Time No Known Allergies Allergy Verified 12/03/21 20:34 Heart Score - HEART Score History: Moderately suspicious EKG: Non-specific Age: 45-65 Risk factors: > 3 risk factors or hx of atherosclerotic disease Troponin: 1-3x normal limit HEART Score: 6 - EKG Read Time Time EKG Completed: 04:55 EKG Read Time: 04:55 - Critical Actions Critical Actions: 4-6 pts:12-16.6% risk of adverse cardiac event. Should be admitted ED Review of Systems ROS: Stated complaint: CHEST PAIN/SOB Other details as noted in HPI Constitutional: denies: chills, fever Eyes: denies: eye pain, eye discharge, vision change ENT: denies: ear pain, throat pain Respiratory: denies: cough, shortness of breath, wheezing Cardiovascular: denies: chest pain, palpitations Endocrine: no symptoms reported Gastrointestinal: denies: abdominal pain, nausea, diarrhea Genitourinary: denies: urgency, dysuria, discharge Musculoskeletal: denies: back pain, joint swelling, arthralgia Skin: denies: rash, lesions Neurological: denies: headache, weakness, paresthesias Psychiatric: denies: anxiety, depression Hematological/Lymphatic: denies: easy bleeding, easy bruising ED Past Medical Hx - Past Medical History Previous Medical History?: Yes Hx Hypertension: Yes Hx Congestive Heart Failure: No Hx Diabetes: No Hx Kidney Stones: Yes - Surgical History Past Surgical History?: Yes Hx Coronary Stent: No Hx Cholecystectomy: Yes Additional Surgical History: gastric sleeve, hernia repair, Gastric By pass. - Social History Smoking Status: Unknown if ever smoked - Medications Home Medications: Home Medications Medication Instructions Recorded Confirmed Last Taken Type Lisinopril/Hydrochlorothiazide 25 mg PO DAILY 01/07/20 01/06/21 01/06/21 History [Zestoretic 10-12.5 mg Tablet] 1 tab Metoprolol SUCCINATE ER TAB 25 mg PO DAILY 01/07/20 01/06/21 01/06/21 History 25 mg Hyoscyamine Rapdis 0.125 mg 1 tab SL 6XD PRN 01/06/21 01/06/21 01/05/21 History 1 tab Tramadol ER (Nf) 1 tab PO 4XD PRN 01/06/21 01/06/21 Unknown History Tylenol /Codeine # 3 tab 1 tab PO 4XD PRN 01/06/21 01/06/21 Unknown History ED Physical Exam - General Limitations: No Limitations General appearance: alert, in no apparent distress - Head Head exam: Present: atraumatic, normocephalic - Eye Eye exam: Present: normal appearance - ENT ENT exam: Present: mucous membranes moist - Neck Neck exam: Present: normal inspection - Respiratory Respiratory exam: Present: normal lung sounds bilaterally. Absent: respiratory distress - Cardiovascular Cardiovascular Exam: Present: tachycardia, irregular rhythm. Absent: systolic murmur, diastolic murmur, rubs, gallop - GI/Abdominal GI/Abdominal exam: Present: soft, normal bowel sounds - Extremities Exam Extremities exam: Present: normal inspection - Back Exam Back exam: Present: normal inspection - Neurological Exam Neurological exam: Present: alert, oriented X3 - Psychiatric Psychiatric exam: Present: normal affect, normal mood - Skin Skin exam: Present: warm, dry, intact, normal color. Absent: rash ED Course Vital Signs 12/03/21 12/03/21 12/03/21 19:23 20:15 20:31 Temperature 97.7 F Pulse Rate 94 H 116 H Respiratory 18 21 Rate Blood Pressure 164/119 85/54 O2 Sat by Pulse 100 Oximetry 12/03/21 12/03/21 12/03/21 20:45 21:01 21:08 Temperature 97.8 F Pulse Rate 115 H 112 H Respiratory 17 14 Rate Blood Pressure 95/53 95/53 O2 Sat by Pulse 100 100 Oximetry ED Medical Decision Making - Lab Data Result diagrams: 12/03/21 22:10 12/03/21 22:10 - EKG Data -: EKG Interpreted by Me - EKG Data Interpretation: other (afib rvr ) - Radiology Data Radiology results: report reviewed, image reviewed - Medical Decision Making work up showed : - Afib rvr : b blockers given , HR back to sinus - D dimer : CTA negative - elevated trop: will start heparin Critical care attestation.: If time is entered above; I have spent that time in minutes in the direct care of this critically ill patient, excluding procedure time. ED Disposition Clinical Impression: Chest pain, Elevated troponin Disposition: ADMITTED INPATIENT Is pt being admited?: Yes Does the pt Need Aspirin: Yes Condition: Stable Instructions: Nonspecific Chest Pain, Adult Referrals: CELINA ROSAS MD [Primary Care Provider] - 3-5 Days
[2021-12-04] MEDS ORDERED: HEPARIN 10,000 UNITS/10 ML VIAL IV PRN (04:59)
[2021-12-04] MEDS ORDERED: HEPARIN/ 0.45% NACL DRIP 25,000 UNIT/500 ML BAG IV SCH (05:00)
[2021-12-04] MEDS ORDERED: NITROGLYCERIN 0.4 MG TAB SUBL SL PRN (05:31)
[2021-12-04] MEDS ORDERED: MORPHINE 4 MG/1 ML INJ IV PRN (05:31)
[2021-12-04] MEDS ORDERED: traMADol 50 MG TAB PO PRN (05:31)
[2021-12-04] MEDS ORDERED: ACETAMINOPHEN 325 MG TAB PO PRN (05:31)
--- NOTE | 2021-12-04 05:39 | History and Physical Report ---
History of Present Illness Date of examination: 12/04/21 Date of admission: 12/04/21 Chief complaint: Chest pain History of present illness: 56 years old female with past medical history of hypertension, kidney stone was brought to the emergency room because of Chest pain started around 1800 when urinating in bathroom. Patient is found episode of SVT when EMS arrived that resolved. Patient also complained mild shortness of breath. In the emergency room patient is found to have troponin of 0.058 and lactic acid 3.10. EKG shows A. fib with RVR patient is given beta-alondra heart rate back to sinus. Patient also has elevated D-dimer but CTA chest is negative for PE Past History Past Medical History: hypertension, other (Kidney stone) Past Surgical History: cholecystectomy, Other ( gastric sleeve, hernia repair, Gastric By pass.) Social history: no significant social history Family history: hypertension Medications and Allergies Allergies Allergy/AdvReac Type Severity Reaction Status Date / Time No Known Allergies Allergy Verified 12/03/21 20:34 Home Medications Medication Instructions Recorded Confirmed Last Taken Type Lisinopril/Hydrochlorothiazide 25 mg PO DAILY 01/07/20 01/06/21 01/06/21 History [Zestoretic 10-12.5 mg Tablet] 1 tab Metoprolol SUCCINATE ER TAB 25 mg PO DAILY 01/07/20 01/06/21 01/06/21 History 25 mg Hyoscyamine Rapdis 0.125 mg 1 tab SL 6XD PRN 01/06/21 01/06/21 01/05/21 History 1 tab Tramadol ER (Nf) 1 tab PO 4XD PRN 01/06/21 01/06/21 Unknown History Tylenol /Codeine # 3 tab 1 tab PO 4XD PRN 01/06/21 01/06/21 Unknown History Active Meds: Active Medications Heparin Sodium (Porcine) (Heparin 10,000 Units/10 Ml Vial) 4,000 unit 40 unit/kg (4000 unit) IV Q6H PRN PRN Reason: Anti-Xa Assay < 0.1 units/ml Heparin Sodium/Sodium Chloride (Heparin/ 0.45% Nacl-25,000 Unit/500 Ml) 25,000 unit in 500 mls @ 20 mls/hr IV TITRATE ILIANA; Protocol Review of Systems All systems: negative Cardiovascular: chest pain, shortness of breath, dyspnea on exertion Exam - Constitutional Vitals: Temp Pulse Resp BP Pulse Ox 97.8 F 112 H 14 95/53 100 12/03/21 21:08 12/03/21 21:01 12/03/21 21:01 12/03/21 21:01 12/03/21 21:01 General appearance: Present: no acute distress, well-nourished - EENT Eyes: Present: PERRL ENT: hearing intact, clear oral mucosa - Neck Neck: Present: supple, normal ROM - Respiratory Respiratory effort: normal Respiratory: bilateral: CTA - Cardiovascular Heart Sounds: Present: S1 & S2. Absent: rub, click - Extremities Extremities: pulses symmetrical, No edema Peripheral Pulses: within normal limits - Abdominal General gastrointestinal: Present: soft, non-tender, non-distended, normal bowel sounds Female genitourinary: Present: normal - Integumentary Integumentary: Present: clear, warm, dry - Musculoskeletal Musculoskeletal: gait normal, strength equal bilaterally - Psychiatric Psychiatric: appropriate mood/affect, intact judgment & insight - Neurologic Neurologic: CNII-XII intact, moves all extremities HEART Score - HEART Score EKG: Non-specific Age: 45-65 Risk factors: > 3 risk factors or hx of atherosclerotic disease Troponin: Troponin T 0.058 ng/mL (0.00-0.029) H 12/03/21 22:10 Troponin: 1-3x normal limit - Critical Actions Critical Actions: 4-6 pts:12-16.6% risk of adverse cardiac event. Should be admitted Results - Labs CBC & Chem 7: 12/03/21 22:10 12/03/21 22:10 Labs: Laboratory Last Values WBC 4.3 K/mm3 (4.5-11.0) L 12/03/21 22:10 RBC 4.72 M/mm3 (3.65-5.03) 12/03/21 22:10 Hgb 11.5 gm/dl (10.1-14.3) 12/03/21 22:10 Hct 36.9 % (30.3-42.9) 12/03/21 22:10 MCV 78 fl (79-97) L 12/03/21 22:10 MCH 24 pg (28-32) L 12/03/21 22:10 MCHC 31 % (30-34) 12/03/21 22:10 RDW 18.8 % (13.2-15.2) H 12/03/21 22:10 Plt Count 314 K/mm3 (140-440) 12/03/21 22:10 Baso % (Auto) Bias Binding Folder 12/03/21 22:10 Add Manual Diff Complete 12/03/21 22:10 Total Counted 100 12/03/21 22:10 Seg Neuts % (Manual) 70.0 % (40.0-70.0) 12/03/21 22:10 Band Neutrophils % 0 % 12/03/21 22:10 Lymphocytes % (Manual) 25.0 % (13.4-35.0) 12/03/21 22:10 Reactive Lymphs % (Man) 0 % 12/03/21 22:10 Monocytes % (Manual) 5.0 % (0.0-7.3) 12/03/21 22:10 Eosinophils % (Manual) 0 % (0.0-4.3) 12/03/21 22:10 Basophils % (Manual) 0 % (0.0-1.8) 12/03/21 22:10 Metamyelocytes % 0 % 12/03/21 22:10 Myelocytes % 0 % 12/03/21 22:10 Promyelocytes % 0 % 12/03/21 22:10 Blast Cells % 0 % 12/03/21 22:10 Nucleated RBC % Not Reportable 12/03/21 22:10 Seg Neutrophils # Man 3.0 K/mm3 (1.8-7.7) 12/03/21 22:10 Band Neutrophils # 0.0 K/mm3 12/03/21 22:10 Lymphocytes # (Manual) 1.1 K/mm3 (1.2-5.4) L 12/03/21 22:10 Abs React Lymphs (Man) 0.0 K/mm3 12/03/21 22:10 Monocytes # (Manual) 0.2 K/mm3 (0.0-0.8) 12/03/21 22:10 Eosinophils # (Manual) 0.0 K/mm3 (0.0-0.4) 12/03/21 22:10 Basophils # (Manual) 0.0 K/mm3 (0.0-0.1) 12/03/21 22:10 Metamyelocytes # 0.0 K/mm3 12/03/21 22:10 Myelocytes # 0.0 K/mm3 12/03/21 22:10 Promyelocytes # 0.0 K/mm3 12/03/21 22:10 Blast Cells # 0.0 K/mm3 12/03/21 22:10 WBC Morphology Not Reportable 12/03/21 22:10 Hypersegmented Neuts Not Reportable 12/03/21 22:10 Hyposegmented Neuts Not Reportable 12/03/21 22:10 Hypogranular Neuts Not Reportable 12/03/21 22:10 Smudge Cells Not Reportable 12/03/21 22:10 Toxic Granulation Not Reportable 12/03/21 22:10 Toxic Vacuolation Not Reportable 12/03/21 22:10 Dohle Bodies Not Reportable 12/03/21 22:10 Pelger-Huet Anomaly Not Reportable 12/03/21 22:10 Sherie Rods Not Reportable 12/03/21 22:10 Platelet Estimate Consistent w auto 12/03/21 22:10 Clumped Platelets Not Reportable 12/03/21 22:10 Plt Clumps, EDTA Not Reportable 12/03/21 22:10 Large Platelets Not Reportable 12/03/21 22:10 Giant Platelets Not Reportable 12/03/21 22:10 Platelet Satelliting Not Reportable 12/03/21 22:10 Plt Morphology Comment Not Reportable 12/03/21 22:10 RBC Morphology Not Reportable 12/03/21 22:10 Dimorphic RBCs Not Reportable 12/03/21 22:10 Polychromasia Not Reportable 12/03/21 22:10 Hypochromasia 1+ 12/03/21 22:10 Poikilocytosis Not Reportable 12/03/21 22:10 Anisocytosis 1+ 12/03/21 22:10 Microcytosis 1+ 12/03/21 22:10 Macrocytosis Not Reportable 12/03/21 22:10 Spherocytes Not Reportable 12/03/21 22:10 Pappenheimer Bodies Not Reportable 12/03/21 22:10 Sickle Cells Not Reportable 12/03/21 22:10 Target Cells Not Reportable 12/03/21 22:10 Tear Drop Cells Rare 12/03/21 22:10 Ovalocytes Few 12/03/21 22:10 Helmet Cells Not Reportable 12/03/21 22:10 [place] Bodies Not Reportable 12/03/21 22:10 [place] Rings Not Reportable 12/03/21 22:10 [place] Cells Not Reportable 12/03/21 22:10 Bite Cells Not Reportable 12/03/21 22:10 Crenated Cell Not Reportable 12/03/21 22:10 Elliptocytes Few 12/03/21 22:10 Acanthocytes (Spur) Not Reportable 12/03/21 22:10 Rouleaux Not Reportable 12/03/21 22:10 Hemoglobin C Crystals Not Reportable 12/03/21 22:10 Schistocytes Not Reportable 12/03/21 22:10 Malaria parasites Not Reportable 12/03/21 22:10 [place] Bodies Not Reportable 12/03/21 22:10 Hem Pathologist Commnt No 12/03/21 22:10 PT 13.1 Sec. (12.2-14.9) 12/03/21 22:10 INR 0.88 (0.87-1.13) 12/03/21 22:10 D-Dimer 278.32 ng/mlDDU (0-234) H 12/03/21 22:10 Sodium 141 mmol/L (137-145) 12/03/21 22:10 Potassium 3.6 mmol/L (3.6-5.0) 12/03/21 22:10 Chloride 105.6 mmol/L (98-107) 12/03/21 22:10 Carbon Dioxide 23 mmol/L (22-30) 12/03/21 22:10 Anion Gap 16 mmol/L 12/03/21 22:10 BUN 9 mg/dL (7-17) 12/03/21 22:10 Creatinine 0.8 mg/dL (0.6-1.2) 12/03/21 22:10 Estimated GFR > 60 ml/min 12/03/21 22:10 BUN/Creatinine Ratio 11 % 12/03/21 22:10 Glucose 121 mg/dL (65-100) H 12/03/21 22:10 Ketones Quantitative Negative (Negative) 12/03/21 22:10 Lactic Acid 1.10 mmol/L (0.7-2.0) 12/04/21 03:19 Calcium 8.9 mg/dL (8.4-10.2) 12/03/21 22:10 Magnesium 1.90 mg/dL (1.7-2.3) 12/03/21 22:10 Total Bilirubin 0.20 mg/dL (0.1-1.2) 12/03/21 22:10 AST 17 units/L (5-40) 12/03/21 22:10 ALT 13 units/L (7-56) 12/03/21 22:10 Alkaline Phosphatase 144 units/L (35-129) H 12/03/21 22:10 Total Creatine Kinase 58 units/L (30-135) 12/03/21 22:10 CK-MB (CK-2) 2.9 ng/mL (0.0-4.0) 12/03/21 22:10 CK-MB (CK-2) Rel Index 5.0 (0-4) H 12/03/21 22:10 Troponin T 0.058 ng/mL (0.00-0.029) H 12/03/21 22:10 C-Reactive Protein 0.30 mg/dL (0.00-1.30) 12/03/21 22:10 Total Protein 7.1 g/dL (6.3-8.2) 12/03/21 22:10 Albumin 3.9 g/dL (3.9-5) 12/03/21 22:10 Albumin/Globulin Ratio 1.2 % 12/03/21 22:10 Triglycerides 54 mg/dL (2-149) 12/03/21 22:10 Cholesterol 185 mg/dL (50-199) 12/03/21 22:10 LDL Cholesterol Direct 97 mg/dL (50-130) 12/03/21 22:10 HDL Cholesterol 74 mg/dL (40-59) H 12/03/21 22:10 Cholesterol/HDL Ratio 2.50 % 12/03/21 22:10 Lipase 30 units/L (13-60) 12/03/21 22:10 Urine Color Yellow (Yellow) 12/03/21 21:58 Urine Turbidity Clear (Clear) 12/03/21 21:58 Specific [place] (Man) 1.010 (1.003-1.030) 12/03/21 21:58 Ur Protein (Man) Negative mg/dL (Negative) 12/03/21 21:58 Ur Ketones (Man) Negative (Negative) 09/09/22 21:58 Ur Nitrite (Man) Negative (Negative) 12/03/21 21:58 Ur Reducing Substances Not Reportable 12/03/21 21:58 Urine Bilirubin (Man) Negative (Negative) 12/03/21 21:58 Urine Ictotest Not Reportable 12/03/21 21:58 Leukocyte Esterase (Man) Negative (Negative) 12/03/21 21:58 Urine WBC (Auto) 7.0 /HPF (0.0-6.0) H 12/03/21 21:58 Urine RBC (Auto) 2.0 /HPF (0.0-6.0) 12/03/21 21:58 U Epithel Cells (Auto) 1.0 /HPF (0-13.0) 12/03/21 21:58 Urine RBC (Manual) Negative (Negative) 12/03/21 21:58 Urine Mucus Few /HPF 12/03/21 21:58 Urine Opiates Screen Negative 12/03/21 21:58 Urine Methadone Screen Negative 12/03/21 21:58 Ur Barbiturates Screen Negative 12/03/21 21:58 Ur Phencyclidine Scrn Negative 12/03/21 21:58 Ur Amphetamines Screen Negative 12/03/21 21:58 U Benzodiazepines Scrn Negative 12/03/21 21:58 Urine Cocaine Screen Negative 12/03/21 21:58 U Marijuana (THC) Screen Negative 12/03/21 21:58 Drugs of Abuse Note Disclamer 12/03/21 21:58 Microbiology: Microbiology 12/03/21 22:10 Peripheral/Venous Blood Culture - Preliminary Culture in Progress 12/03/21 22:10 Peripheral/Venous Blood Culture - Preliminary Culture in Progress - Imaging and Cardiology Chest x-ray: report reviewed CT scan - chest: report reviewed Assessment and Plan VTE prophylaxis?: Chemical Plan of care discussed with patient/family: Yes - Patient Problems (1) NSTEMI (non-ST elevated myocardial infarction) Current Visit: Yes Status: Acute Plan to address problem: Admit the patient to the medical telemetry. Aspirin 325 mg p.o. daily. Lipitor 40 mg p.o. daily. Nitroglycerin as needed. Heparin drip as per protocol. Cardiology evaluation .echocardiogram (2) Elevated troponin Current Visit: Yes Status: Acute Plan to address problem: Aspirin 325 mg p.o. daily. Lipitor 40 mg p.o. daily. Nitroglycerin as needed. Heparin drip as per protocol. Cardiology evaluation .echocardiogram (3) HTN (hypertension) Current Visit: No Status: Chronic Plan to address problem: Metoprolol 25 mg p.o. daily. Lisinopril/hydrochlorothiazide 25 mg p.o. daily. We will monitor the blood pressure closely (4) Paroxysmal atrial fibrillation Current Visit: No Status: Chronic Plan to address problem: Aspirin 325 mg p.o. daily. Lipitor 40 mg p.o. daily. Nitroglycerin as needed. Heparin drip as per protocol. Cardiology evaluation .echocardiogram (5) DVT prophylaxis Current Visit: Yes Status: Acute Plan to address problem: Heparin drip for DVT prophylaxis. Pepcid 20 mg p.o. twice daily for GI prophylaxis. Patient is a full code
[2021-12-04 06:05] LABS: Basophils % (Auto) 0.6 % (0.0-1.8); Eosinophils % (Auto) 0.9 % (0.0-4.3); Hematocrit 30.5 % (30.3-42.9); Hemoglobin 10.2 gm/dl (10.1-14.3); Lymphocytes # (Auto) 1.4 K/mm3 (1.2-5.4); Mean Corpuscular HGB Conc 33 % (30-34); Mean Corpuscular Volume 77 fl (79-97); Monocytes # (Auto) 0.6 K/mm3 (0.0-0.8); Platelet Count 279 K/mm3 (140-440); Red Blood Count 3.98 M/mm3 (3.65-5.03); Red Cell Distribution Width 18.2 % (13.2-15.2)
[2021-12-04 06:13] LABS: INR 0.86 (0.87-1.13)
[2021-12-04 06:20] LABS: Blood Urea Nitrogen 7 mg/dL (7-17); Calcium 8.9 mg/dL (8.4-10.2); Hemolysis Index 3
[2021-12-04 06:25] LABS: BUN/Creatinine Ratio 12
[2021-12-04] MEDS ORDERED: NON-FORMULARY EACH (Lisinopril/Hydrochlorothiazide [Zestoretic 10-12.5 Mg Tablet] 1 EACH T PO SCH (10:00)
[2021-12-04] MEDS ORDERED: METOPROLOL SUCCINATE XL 25 MG TAB PO SCH (10:00)
[2021-12-04] MEDS ORDERED: LISINOPRIL 20 MG TAB PO SCH (10:00)
[2021-12-04] MEDS ORDERED: NON-FORMULARY EACH (Metoprolol Succinate Er Tab 25 MG) PO SCH (10:00)
[2021-12-04] MEDS ORDERED: hydroCHLOROthiazide 25 MG TAB PO SCH (10:00)
[2021-12-04] MEDS: PANTOPRAZOLE 40 MG TAB PO SCH (10:50)
--- NOTE | 2021-12-04 13:13 | Consultation ---
History of Present Illness Consult date: 12/04/21 Requesting physician: DAYANARA ALVAREZ Consult reason: other (NSTEMI) History of present illness: Pt is a 56-year-old female with a hx of transient AF (previously in the setting of Phentermine use) and obesity (s/p gastric bypass 02/2021) who presented with complaints of chest pain. Her initial complaint was dizziness that started when she got up to go to the bathroom. Followed by chest pain associated with SOB after urinating. She was found to be in AF with RVR upon arrival but has since converted to SR s/p IV Lopressor 5mg x 1. Pt is followed in our office by Dr. Hernández. Of note, pt reports she has had multiple issues since undergoing gastric bypass, including weakness and intractable N/V. She was receiving TPN for a while. She had a PICC line, which was removed via IR approximately 2 weeks ago. She started reintroducing PO foods about 6 weeks ago. Past History Past Medical History: atrial fib, hypertension Past Surgical History: cholecystectomy, Other (gastric bypass). denies: valve replacement, CABG, PTCA Social history: denies: smoking, alcohol abuse Family history: diabetes (father) Medications and Allergies Allergies Allergy/AdvReac Type Severity Reaction Status Date / Time lisinopril AdvReac Unknown Verified 12/04/21 10:41 Home Medications Medication Instructions Recorded Confirmed Last Taken Type Metoprolol SUCCINATE ER TAB 25 mg PO DAILY 01/07/20 12/04/21 01/06/21 History 25 mg Gabapentin [Neurontin] 300 mg PO BID 12/04/21 12/04/21 Unknown History hydrALAZINE [Apresoline TAB] 100 mg PO BID 12/04/21 12/04/21 Unknown History Active Meds: Active Medications Acetaminophen (Acetaminophen 325 Mg Tab) 650 mg PO Q6H PRN PRN Reason: Pain, Mild (1-3) Aspirin (Aspirin Ec 325 Mg Tab) 325 mg PO QDAY ILIANA Atorvastatin Calcium (Atorvastatin 40 Mg Tab) 40 mg PO QHS ILIANA Heparin Sodium (Porcine) (Heparin 10,000 Units/10 Ml Vial) 4,000 unit 40 unit/kg (4000 unit) IV Q6H PRN PRN Reason: Anti-Xa Assay < 0.1 units/ml Last Admin: 12/04/21 07:45 Dose: 4,000 unit Hydrochlorothiazide (Hydrochlorothiazide 25 Mg Tab) 25 mg PO QDAY [facility] Last Admin: 12/04/21 10:50 Dose: 25 mg Heparin Sodium/Sodium Chloride (Heparin/ 0.45% Nacl-25,000 Unit/500 Ml) 25,000 unit in 500 mls @ 20 mls/hr IV TITRATE [facility]; Protocol Last Admin: 12/04/21 06:45 Dose: 1,000 units/hr, 20 mls/hr Lisinopril (Lisinopril 20 Mg Tab) 20 mg PO QDAY [facility] Last Admin: 12/04/21 10:39 Dose: Not Given Metoprolol Succinate (Metoprolol Succinate Xl 25 Mg Tab) 25 mg PO QDAY [facility] Last Admin: 12/04/21 10:50 Dose: 25 mg Morphine Sulfate (Morphine 4 Mg/1 Ml Inj) 2 mg IV Q5MIN PRN PRN Reason: Chest Pain unrelieved by NTG Nitroglycerin (Nitroglycerin 0.4 Mg Tab Subl) 0.4 mg SL Q5M PRN PRN Reason: Chest Pain Pantoprazole Sodium (Pantoprazole 40 Mg Tab) 40 mg PO QDAY [facility] Last Admin: 12/04/21 10:50 Dose: 40 mg Sodium Chloride (Sodium Chloride 0.9% 10 Ml Flush Syringe) 10 ml IV PRN PRN PRN Reason: LINE FLUSH Tramadol HCl (Tramadol 50 Mg Tab) 50 mg PO Q6H PRN PRN Reason: Pain, Moderate (4-6) Review of Systems Constitutional: no fever, no chills Ears, nose, mouth and throat: no nasal congestion, no sore throat Cardiovascular: chest pain, lightheadedness, shortness of breath, no orthopnea, no palpitations, no syncope Respiratory: shortness of breath, no cough Gastrointestinal: no nausea, no vomiting Genitourinary Female: no dysuria Musculoskeletal: no neck stiffness, no neck pain Integumentary: no rash, no wounds Neurological: no weakness, no numbness, no tingling, no seizures, no syncope, no headaches Endocrine: no polydipsia, no polyuria Hematologic/Lymphatic: no easy bruising, no easy bleeding Allergic/Immunologic: no anaphylaxis Physical Examination Vital Signs Temp Pulse BP 97.7 F 94 H 164/119 12/03/21 19:23 12/03/21 19:23 12/03/21 19:23 General appearance: no acute distress HEENT: Positive: EOMI, Normocephaly Neck: Negative: JVD/HJR Cardiac: Positive: Reg Rate and Rhythm, S1/S2 Lungs: Positive: Decreased Breath Sounds Neuro: Positive: Grossly Intact Abdomen: Positive: Soft. Negative: Tender Skin: Negative: Rash Musculoskeletal: No Pain Extremities: Present: warm. Absent: edema Results 12/04/21 05:34 12/04/21 05:37 Cardiac Enzymes 12/03/21 12/03/21 12/03/21 Range/Units 21:58 21:58 22:10 WBC 4.3 L (4.5-11.0) K/mm3 RBC 4.72 (3.65-5.03) M/mm3 Hgb 11.5 (10.1-14.3) gm/dl Hct 36.9 (30.3-42.9) % MCV 78 L (79-97) fl MCH 24 L (28-32) pg MCHC 31 (30-34) % RDW 18.8 H (13.2-15.2) % Plt Count 314 (140-440) K/mm3 Lymph % (Auto) (13.4-35.0) % [place] % (Auto) (0.0-7.3) % Eos % (Auto) (0.0-4.3) % Baso % (Auto) Tariff Compiler Lymph # (Auto) (1.2-5.4) K/mm3 [place] # (Auto) (0.0-0.8) K/mm3 Eos # (Auto) (0.0-0.4) K/mm3 Baso # (Auto) (0.0-0.1) K/mm3 Add Manual Diff Complete Total Counted 100 Seg Neutrophils % (40.0-70.0) % Seg Neuts % (Manual) 70.0 (40.0-70.0) % Band Neutrophils % 0 % Lymphocytes % (Manual) 25.0 (13.4-35.0) % Reactive Lymphs % (Man) 0 % Monocytes % (Manual) 5.0 (0.0-7.3) % Eosinophils % (Manual) 0 (0.0-4.3) % Basophils % (Manual) 0 (0.0-1.8) % Metamyelocytes % 0 % Myelocytes % 0 % Promyelocytes % 0 % Blast Cells % 0 % Nucleated RBC % Not Reportable Seg Neutrophils # (1.8-7.7) K/mm3 Seg Neutrophils # Man 3.0 (1.8-7.7) K/mm3 Band Neutrophils # 0.0 K/mm3 Lymphocytes # (Manual) 1.1 L (1.2-5.4) K/mm3 Abs React Lymphs (Man) 0.0 K/mm3 Monocytes # (Manual) 0.2 (0.0-0.8) K/mm3 Eosinophils # (Manual) 0.0 (0.0-0.4) K/mm3 Basophils # (Manual) 0.0 (0.0-0.1) K/mm3 Metamyelocytes # 0.0 K/mm3 Myelocytes # 0.0 K/mm3 Promyelocytes # 0.0 K/mm3 Blast Cells # 0.0 K/mm3 WBC Morphology Not Reportable Hypersegmented Neuts Not Reportable Hyposegmented Neuts Not Reportable Hypogranular Neuts Not Reportable Smudge Cells Not Reportable Toxic Granulation Not Reportable Toxic Vacuolation Not Reportable Dohle Bodies Not Reportable Pelger-Huet Anomaly Not Reportable Sherie Rods Not Reportable Platelet Estimate Consistent w auto Clumped Platelets Not Reportable Plt Clumps, EDTA Not Reportable Large Platelets Not Reportable Giant Platelets Not Reportable Platelet Satelliting Not Reportable Plt Morphology Comment Not Reportable RBC Morphology Not Reportable Dimorphic RBCs Not Reportable Polychromasia Not Reportable Hypochromasia 1+ Poikilocytosis Not Reportable Anisocytosis 1+ Microcytosis 1+ Macrocytosis Not Reportable Spherocytes Not Reportable Pappenheimer Bodies Not Reportable Sickle Cells Not Reportable Target Cells Not Reportable Tear Drop Cells Rare Ovalocytes Few Helmet Cells Not Reportable [place] Bodies Not Reportable [place] Rings Not Reportable [place] Cells Not Reportable Bite Cells Not Reportable Crenated Cell Not Reportable Elliptocytes Few Acanthocytes (Spur) Not Reportable Rouleaux Not Reportable Hemoglobin C Crystals Not Reportable Schistocytes Not Reportable Malaria parasites Not Reportable Ernesto Bodies Not Reportable Hem Pathologist Commnt No PT (12.2-14.9) Sec. INR (0.87-1.13) APTT (24.2-36.6) Sec. D-Dimer (0-234) ng/mlDDU Sodium (137-145) mmol/L Potassium (3.6-5.0) mmol/L Chloride (98-107) mmol/L Carbon Dioxide (22-30) mmol/L Anion Gap mmol/L BUN (7-17) mg/dL Creatinine (0.6-1.2) mg/dL Estimated GFR ml/min BUN/Creatinine Ratio % Glucose (65-100) mg/dL Ketones Quantitative (Negative) Lactic Acid (0.7-2.0) mmol/L Calcium (8.4-10.2) mg/dL Magnesium (1.7-2.3) mg/dL Total Bilirubin (0.1-1.2) mg/dL AST (5-40) units/L ALT (7-56) units/L Alkaline Phosphatase (35-129) units/L Total Creatine Kinase (30-135) units/L CK-MB (CK-2) (0.0-4.0) ng/mL CK-MB (CK-2) Rel Index (0-4) Troponin T (0.00-0.029) ng/mL C-Reactive Protein (0.00-1.30) mg/dL Total Protein (6.3-8.2) g/dL Albumin (3.9-5) g/dL Albumin/Globulin Ratio % Triglycerides (2-149) mg/dL Cholesterol (50-199) mg/dL LDL Cholesterol Direct (50-130) mg/dL HDL Cholesterol (40-59) mg/dL Cholesterol/HDL Ratio % Lipase (13-60) units/L Urine Color Yellow (Yellow) Urine Turbidity Clear (Clear) Specific [place] (Man) 1.010 (1.003-1.030) Ur Protein (Man) Negative (Negative) mg/dL Ur Ketones (Man) Negative (Negative) Ur Nitrite (Man) Negative (Negative) Ur Reducing Substances Not Reportable Urine Bilirubin (Man) Negative (Negative) Urine Ictotest Not Reportable Leukocyte Esterase (Man) Negative (Negative) Urine WBC (Auto) 7.0 H (0.0-6.0) /HPF Urine RBC (Auto) 2.0 (0.0-6.0) /HPF U Epithel Cells (Auto) 1.0 (0-13.0) /HPF Urine RBC (Manual) Negative (Negative) Urine Mucus Few /HPF Urine Opiates Screen Negative Urine Methadone Screen Negative Ur Barbiturates Screen Negative Ur Phencyclidine Scrn Negative Ur Amphetamines Screen Negative U Benzodiazepines Scrn Negative Urine Cocaine Screen Negative U Marijuana (THC) Screen Negative Drugs of Abuse Note Disclamer 12/03/21 12/03/21 12/03/21 Range/Units 22:10 22:10 22:10 WBC (4.5-11.0) K/mm3 RBC (3.65-5.03) M/mm3 Hgb (10.1-14.3) gm/dl Hct (30.3-42.9) % MCV (79-97) fl MCH (28-32) pg MCHC (30-34) % RDW (13.2-15.2) % Plt Count (140-440) K/mm3 Lymph % (Auto) (13.4-35.0) % [place] % (Auto) (0.0-7.3) % Eos % (Auto) (0.0-4.3) % Baso % (Auto) Lymph # (Auto) (1.2-5.4) K/mm3 [place] # (Auto) (0.0-0.8) K/mm3 Eos # (Auto) (0.0-0.4) K/mm3 Baso # (Auto) (0.0-0.1) K/mm3 Add Manual Diff Total Counted Seg Neutrophils % (40.0-70.0) % Seg Neuts % (Manual) (40.0-70.0) % Band Neutrophils % % Lymphocytes % (Manual) (13.4-35.0) % Reactive Lymphs % (Man) % Monocytes % (Manual) (0.0-7.3) % Eosinophils % (Manual) (0.0-4.3) % Basophils % (Manual) (0.0-1.8) % Metamyelocytes % % Myelocytes % % Promyelocytes % % Blast Cells % % Nucleated RBC % Seg Neutrophils # (1.8-7.7) K/mm3 Seg Neutrophils # Man (1.8-7.7) K/mm3 Band Neutrophils # K/mm3 Lymphocytes # (Manual) (1.2-5.4) K/mm3 Abs React Lymphs (Man) K/mm3 Monocytes # (Manual) (0.0-0.8) K/mm3 Eosinophils # (Manual) (0.0-0.4) K/mm3 Basophils # (Manual) (0.0-0.1) K/mm3 Metamyelocytes # K/mm3 Myelocytes # K/mm3 Promyelocytes # K/mm3 Blast Cells # K/mm3 WBC Morphology Hypersegmented Neuts Hyposegmented Neuts Hypogranular Neuts Smudge Cells Toxic Granulation Toxic Vacuolation Dohle Bodies Pelger-Huet Anomaly Sherie Rods Platelet Estimate Clumped Platelets Plt Clumps, EDTA Large Platelets Giant Platelets Platelet Satelliting Plt Morphology Comment RBC Morphology Dimorphic RBCs Polychromasia Hypochromasia Poikilocytosis Anisocytosis Microcytosis Macrocytosis Spherocytes Pappenheimer Bodies Sickle Cells Target Cells Tear Drop Cells Ovalocytes Helmet Cells [place] Bodies [place] Rings [place] Cells Bite Cells Crenated Cell Elliptocytes Acanthocytes (Spur) Rouleaux Hemoglobin C Crystals Schistocytes Malaria parasites Ernesto Bodies Hem Pathologist Commnt PT 13.1 (12.2-14.9) Sec. INR 0.88 (0.87-1.13) APTT (24.2-36.6) Sec. D-Dimer 278.32 H (0-234) ng/mlDDU Sodium 141 (137-145) mmol/L Potassium 3.6 (3.6-5.0) mmol/L Chloride 105.6 (98-107) mmol/L Carbon Dioxide 23 (22-30) mmol/L Anion Gap 16 mmol/L BUN 9 (7-17) mg/dL Creatinine 0.8 (0.6-1.2) mg/dL Estimated GFR > 60 ml/min BUN/Creatinine Ratio 11 % Glucose 121 H (65-100) mg/dL Ketones Quantitative (Negative) Lactic Acid 3.10 H* (0.7-2.0) mmol/L Calcium 8.9 (8.4-10.2) mg/dL Magnesium 1.90 (1.7-2.3) mg/dL Total Bilirubin 0.20 (0.1-1.2) mg/dL AST 17 (5-40) units/L ALT 13 (7-56) units/L Alkaline Phosphatase 144 H (35-129) units/L Total Creatine Kinase 58 (30-135) units/L CK-MB (CK-2) 2.9 (0.0-4.0) ng/mL CK-MB (CK-2) Rel Index 5.0 H (0-4) Troponin T 0.058 H (0.00-0.029) ng/mL C-Reactive Protein (0.00-1.30) mg/dL Total Protein 7.1 (6.3-8.2) g/dL Albumin 3.9 (3.9-5) g/dL Albumin/Globulin Ratio 1.2 % Triglycerides 54 (2-149) mg/dL Cholesterol 185 (50-199) mg/dL LDL Cholesterol Direct 97 (50-130) mg/dL HDL Cholesterol 74 H (40-59) mg/dL Cholesterol/HDL Ratio 2.50 % Lipase 30 (13-60) units/L Urine Color (Yellow) Urine Turbidity (Clear) Specific [place] (Man) (1.003-1.030) Ur Protein (Man) (Negative) mg/dL Ur Ketones (Man) (Negative) Ur Nitrite (Man) (Negative) Ur Reducing Substances Urine Bilirubin (Man) (Negative) Urine Ictotest Leukocyte Esterase (Man) (Negative) Urine WBC (Auto) (0.0-6.0) /HPF Urine RBC (Auto) (0.0-6.0) /HPF U Epithel Cells (Auto) (0-13.0) /HPF Urine RBC (Manual) (Negative) Urine Mucus /HPF Urine Opiates Screen Urine Methadone Screen Ur Barbiturates Screen Ur Phencyclidine Scrn Ur Amphetamines Screen U Benzodiazepines Scrn Urine Cocaine Screen U Marijuana (THC) Screen Drugs of Abuse Note 12/03/21 12/04/21 12/04/21 Range/Units 22:10 00:03 03:19 WBC (4.5-11.0) K/mm3 RBC (3.65-5.03) M/mm3 Hgb (10.1-14.3) gm/dl Hct (30.3-42.9) % MCV (79-97) fl MCH (28-32) pg MCHC (30-34) % RDW (13.2-15.2) % Plt Count (140-440) K/mm3 Lymph % (Auto) (13.4-35.0) % [place] % (Auto) (0.0-7.3) % Eos % (Auto) (0.0-4.3) % Baso % (Auto) Lymph # (Auto) (1.2-5.4) K/mm3 [place] # (Auto) (0.0-0.8) K/mm3 Eos # (Auto) (0.0-0.4) K/mm3 Baso # (Auto) (0.0-0.1) K/mm3 Add Manual Diff Total Counted Seg Neutrophils % (40.0-70.0) % Seg Neuts % (Manual) (40.0-70.0) % Band Neutrophils % % Lymphocytes % (Manual) (13.4-35.0) % Reactive Lymphs % (Man) % Monocytes % (Manual) (0.0-7.3) % Eosinophils % (Manual) (0.0-4.3) % Basophils % (Manual) (0.0-1.8) % Metamyelocytes % % Myelocytes % % Promyelocytes % % Blast Cells % % Nucleated RBC % Seg Neutrophils # (1.8-7.7) K/mm3 Seg Neutrophils # Man (1.8-7.7) K/mm3 Band Neutrophils # K/mm3 Lymphocytes # (Manual) (1.2-5.4) K/mm3 Abs React Lymphs (Man) K/mm3 Monocytes # (Manual) (0.0-0.8) K/mm3 Eosinophils # (Manual) (0.0-0.4) K/mm3 Basophils # (Manual) (0.0-0.1) K/mm3 Metamyelocytes # K/mm3 Myelocytes # K/mm3 Promyelocytes # K/mm3 Blast Cells # K/mm3 WBC Morphology Hypersegmented Neuts Hyposegmented Neuts Hypogranular Neuts Smudge Cells Toxic Granulation Toxic Vacuolation Dohle Bodies Pelger-Huet Anomaly Sherie Rods Platelet Estimate Clumped Platelets Plt Clumps, EDTA Large Platelets Giant Platelets Platelet Satelliting Plt Morphology Comment RBC Morphology Dimorphic RBCs Polychromasia Hypochromasia Poikilocytosis Anisocytosis Microcytosis Macrocytosis Spherocytes Pappenheimer Bodies Sickle Cells Target Cells Tear Drop Cells Ovalocytes Helmet Cells [place] Bodies [place] Rings [place] Cells Bite Cells Crenated Cell Elliptocytes Acanthocytes (Spur) Rouleaux Hemoglobin C Crystals Schistocytes Malaria parasites Ernesto Bodies Hem Pathologist Commnt PT (12.2-14.9) Sec. INR (0.87-1.13) APTT (24.2-36.6) Sec. D-Dimer (0-234) ng/mlDDU Sodium (137-145) mmol/L Potassium (3.6-5.0) mmol/L Chloride (98-107) mmol/L Carbon Dioxide (22-30) mmol/L Anion Gap mmol/L BUN (7-17) mg/dL Creatinine (0.6-1.2) mg/dL Estimated GFR ml/min BUN/Creatinine Ratio % Glucose (65-100) mg/dL Ketones Quantitative Negative (Negative) Lactic Acid 2.00 1.10 (0.7-2.0) mmol/L Calcium (8.4-10.2) mg/dL Magnesium (1.7-2.3) mg/dL Total Bilirubin (0.1-1.2) mg/dL AST (5-40) units/L ALT (7-56) units/L Alkaline Phosphatase (35-129) units/L Total Creatine Kinase (30-135) units/L CK-MB (CK-2) (0.0-4.0) ng/mL CK-MB (CK-2) Rel Index (0-4) Troponin T (0.00-0.029) ng/mL C-Reactive Protein 0.30 (0.00-1.30) mg/dL Total Protein (6.3-8.2) g/dL Albumin (3.9-5) g/dL Albumin/Globulin Ratio % Triglycerides (2-149) mg/dL Cholesterol (50-199) mg/dL LDL Cholesterol Direct (50-130) mg/dL HDL Cholesterol (40-59) mg/dL Cholesterol/HDL Ratio % Lipase (13-60) units/L Urine Color (Yellow) Urine Turbidity (Clear) Specific [place] (Man) (1.003-1.030) Ur Protein (Man) (Negative) mg/dL Ur Ketones (Man) (Negative) Ur Nitrite (Man) (Negative) Ur Reducing Substances Urine Bilirubin (Man) (Negative) Urine Ictotest Leukocyte Esterase (Man) (Negative) Urine WBC (Auto) (0.0-6.0) /HPF Urine RBC (Auto) (0.0-6.0) /HPF U Epithel Cells (Auto) (0-13.0) /HPF Urine RBC (Manual) (Negative) Urine Mucus /HPF Urine Opiates Screen Urine Methadone Screen Ur Barbiturates Screen Ur Phencyclidine Scrn Ur Amphetamines Screen U Benzodiazepines Scrn Urine Cocaine Screen U Marijuana (THC) Screen Drugs of Abuse Note 12/04/21 12/04/21 12/04/21 Range/Units 03:19 05:34 05:34 WBC 4.1 L (4.5-11.0) K/mm3 RBC 3.98 (3.65-5.03) M/mm3 Hgb 10.2 (10.1-14.3) gm/dl Hct 30.5 D (30.3-42.9) % MCV 77 L (79-97) fl MCH 26 L (28-32) pg MCHC 33 (30-34) % RDW 18.2 H (13.2-15.2) % Plt Count 279 (140-440) K/mm3 Lymph % (Auto) 35.0 (13.4-35.0) % [place] % (Auto) 15.0 H (0.0-7.3) % Eos % (Auto) 0.9 (0.0-4.3) % Baso % (Auto) 0.6 Lymph # (Auto) 1.4 (1.2-5.4) K/mm3 [place] # (Auto) 0.6 (0.0-0.8) K/mm3 Eos # (Auto) 0.0 (0.0-0.4) K/mm3 Baso # (Auto) 0.0 (0.0-0.1) K/mm3 Add Manual Diff Total Counted Seg Neutrophils % 48.5 (40.0-70.0) % Seg Neuts % (Manual) (40.0-70.0) % Band Neutrophils % % Lymphocytes % (Manual) (13.4-35.0) % Reactive Lymphs % (Man) % Monocytes % (Manual) (0.0-7.3) % Eosinophils % (Manual) (0.0-4.3) % Basophils % (Manual) (0.0-1.8) % Metamyelocytes % % Myelocytes % % Promyelocytes % % Blast Cells % % Nucleated RBC % Seg Neutrophils # 2.0 (1.8-7.7) K/mm3 Seg Neutrophils # Man (1.8-7.7) K/mm3 Band Neutrophils # K/mm3 Lymphocytes # (Manual) (1.2-5.4) K/mm3 Abs React Lymphs (Man) K/mm3 Monocytes # (Manual) (0.0-0.8) K/mm3 Eosinophils # (Manual) (0.0-0.4) K/mm3 Basophils # (Manual) (0.0-0.1) K/mm3 Metamyelocytes # K/mm3 Myelocytes # K/mm3 Promyelocytes # K/mm3 Blast Cells # K/mm3 WBC Morphology Hypersegmented Neuts Hyposegmented Neuts Hypogranular Neuts Smudge Cells Toxic Granulation Toxic Vacuolation Dohle Bodies Pelger-Huet Anomaly Sherie Rods Platelet Estimate Clumped Platelets Plt Clumps, EDTA Large Platelets Giant Platelets Platelet Satelliting Plt Morphology Comment RBC Morphology Dimorphic RBCs Polychromasia Hypochromasia Poikilocytosis Anisocytosis Microcytosis Macrocytosis Spherocytes Pappenheimer Bodies Sickle Cells Target Cells Tear Drop Cells Ovalocytes Helmet Cells [place] Bodies [place] Rings [place] Cells Bite Cells Crenated Cell Elliptocytes Acanthocytes (Spur) Rouleaux Hemoglobin C Crystals Schistocytes Malaria parasites Ernesto Bodies Hem Pathologist Commnt PT 12.9 (12.2-14.9) Sec. INR 0.86 L (0.87-1.13) APTT 29.0 (24.2-36.6) Sec. D-Dimer (0-234) ng/mlDDU Sodium (137-145) mmol/L Potassium (3.6-5.0) mmol/L Chloride (98-107) mmol/L Carbon Dioxide (22-30) mmol/L Anion Gap mmol/L BUN (7-17) mg/dL Creatinine (0.6-1.2) mg/dL Estimated GFR ml/min BUN/Creatinine Ratio % Glucose (65-100) mg/dL Ketones Quantitative (Negative) Lactic Acid (0.7-2.0) mmol/L Calcium (8.4-10.2) mg/dL Magnesium (1.7-2.3) mg/dL Total Bilirubin (0.1-1.2) mg/dL AST (5-40) units/L ALT (7-56) units/L Alkaline Phosphatase (35-129) units/L Total Creatine Kinase (30-135) units/L CK-MB (CK-2) (0.0-4.0) ng/mL CK-MB (CK-2) Rel Index (0-4) Troponin T 0.184 H* D (0.00-0.029) ng/mL C-Reactive Protein (0.00-1.30) mg/dL Total Protein (6.3-8.2) g/dL Albumin (3.9-5) g/dL Albumin/Globulin Ratio % Triglycerides (2-149) mg/dL Cholesterol (50-199) mg/dL LDL Cholesterol Direct (50-130) mg/dL HDL Cholesterol (40-59) mg/dL Cholesterol/HDL Ratio % Lipase (13-60) units/L Urine Color (Yellow) Urine Turbidity (Clear) Specific [place] (Man) (1.003-1.030) Ur Protein (Man) (Negative) mg/dL Ur Ketones (Man) (Negative) Ur Nitrite (Man) (Negative) Ur Reducing Substances Urine Bilirubin (Man) (Negative) Urine Ictotest Leukocyte Esterase (Man) (Negative) Urine WBC (Auto) (0.0-6.0) /HPF Urine RBC (Auto) (0.0-6.0) /HPF U Epithel Cells (Auto) (0-13.0) /HPF Urine RBC (Manual) (Negative) Urine Mucus /HPF Urine Opiates Screen Urine Methadone Screen Ur Barbiturates Screen Ur Phencyclidine Scrn Ur Amphetamines Screen U Benzodiazepines Scrn Urine Cocaine Screen U Marijuana (THC) Screen Drugs of Abuse Note 12/04/21 12/04/21 Range/Units 05:37 12:03 WBC (4.5-11.0) K/mm3 RBC (3.65-5.03) M/mm3 Hgb (10.1-14.3) gm/dl Hct (30.3-42.9) % MCV (79-97) fl MCH (28-32) pg MCHC (30-34) % RDW (13.2-15.2) % Plt Count (140-440) K/mm3 Lymph % (Auto) (13.4-35.0) % [place] % (Auto) (0.0-7.3) % Eos % (Auto) (0.0-4.3) % Baso % (Auto) Lymph # (Auto) (1.2-5.4) K/mm3 [place] # (Auto) (0.0-0.8) K/mm3 Eos # (Auto) (0.0-0.4) K/mm3 Baso # (Auto) (0.0-0.1) K/mm3 Add Manual Diff Total Counted Seg Neutrophils % (40.0-70.0) % Seg Neuts % (Manual) (40.0-70.0) % Band Neutrophils % % Lymphocytes % (Manual) (13.4-35.0) % Reactive Lymphs % (Man) % Monocytes % (Manual) (0.0-7.3) % Eosinophils % (Manual) (0.0-4.3) % Basophils % (Manual) (0.0-1.8) % Metamyelocytes % % Myelocytes % % Promyelocytes % % Blast Cells % % Nucleated RBC % Seg Neutrophils # (1.8-7.7) K/mm3 Seg Neutrophils # Man (1.8-7.7) K/mm3 Band Neutrophils # K/mm3 Lymphocytes # (Manual) (1.2-5.4) K/mm3 Abs React Lymphs (Man) K/mm3 Monocytes # (Manual) (0.0-0.8) K/mm3 Eosinophils # (Manual) (0.0-0.4) K/mm3 Basophils # (Manual) (0.0-0.1) K/mm3 Metamyelocytes # K/mm3 Myelocytes # K/mm3 Promyelocytes # K/mm3 Blast Cells # K/mm3 WBC Morphology Hypersegmented Neuts Hyposegmented Neuts Hypogranular Neuts Smudge Cells Toxic Granulation Toxic Vacuolation Dohle Bodies Pelger-Huet Anomaly Sherie Rods Platelet Estimate Clumped Platelets Plt Clumps, EDTA Large Platelets Giant Platelets Platelet Satelliting Plt Morphology Comment RBC Morphology Dimorphic RBCs Polychromasia Hypochromasia Poikilocytosis Anisocytosis Microcytosis Macrocytosis Spherocytes Pappenheimer Bodies Sickle Cells Target Cells Tear Drop Cells Ovalocytes Helmet Cells [place] Bodies [place] Rings [place] Cells Bite Cells Crenated Cell Elliptocytes Acanthocytes (Spur) Rouleaux Hemoglobin C Crystals Schistocytes Malaria parasites Ernesto Bodies Hem Pathologist Commnt PT (12.2-14.9) Sec. INR (0.87-1.13) APTT (24.2-36.6) Sec. D-Dimer (0-234) ng/mlDDU Sodium 143 (137-145) mmol/L Potassium 4.4 D (3.6-5.0) mmol/L Chloride 108.5 H (98-107) mmol/L Carbon Dioxide 25 (22-30) mmol/L Anion Gap 14 mmol/L BUN 7 (7-17) mg/dL Creatinine 0.6 (0.6-1.2) mg/dL Estimated GFR > 60 ml/min BUN/Creatinine Ratio 12 % Glucose 95 (65-100) mg/dL Ketones Quantitative (Negative) Lactic Acid (0.7-2.0) mmol/L Calcium 8.9 (8.4-10.2) mg/dL Magnesium (1.7-2.3) mg/dL Total Bilirubin (0.1-1.2) mg/dL AST (5-40) units/L ALT (7-56) units/L Alkaline Phosphatase (35-129) units/L Total Creatine Kinase (30-135) units/L CK-MB (CK-2) (0.0-4.0) ng/mL CK-MB (CK-2) Rel Index (0-4) Troponin T 0.126 H* D (0.00-0.029) ng/mL C-Reactive Protein (0.00-1.30) mg/dL Total Protein (6.3-8.2) g/dL Albumin (3.9-5) g/dL Albumin/Globulin Ratio % Triglycerides (2-149) mg/dL Cholesterol (50-199) mg/dL LDL Cholesterol Direct (50-130) mg/dL HDL Cholesterol (40-59) mg/dL Cholesterol/HDL Ratio % Lipase (13-60) units/L Urine Color (Yellow) Urine Turbidity (Clear) Specific [place] (Man) (1.003-1.030) Ur Protein (Man) (Negative) mg/dL Ur Ketones (Man) (Negative) Ur Nitrite (Man) (Negative) Ur Reducing Substances Urine Bilirubin (Man) (Negative) Urine Ictotest Leukocyte Esterase (Man) (Negative) Urine WBC (Auto) (0.0-6.0) /HPF Urine RBC (Auto) (0.0-6.0) /HPF U Epithel Cells (Auto) (0-13.0) /HPF Urine RBC (Manual) (Negative) Urine Mucus /HPF Urine Opiates Screen Urine Methadone Screen Ur Barbiturates Screen Ur Phencyclidine Scrn Ur Amphetamines Screen U Benzodiazepines Scrn Urine Cocaine Screen U Marijuana (THC) Screen Drugs of Abuse Note Coagulation 12/03/21 12/04/21 Range/Units 22:10 05:34 PT 13.1 12.9 (12.2-14.9) Sec. INR 0.88 0.86 L (0.87-1.13) APTT 29.0 (24.2-36.6) Sec. Lipids 12/03/21 Range/Units 22:10 Triglycerides 54 (2-149) mg/dL Cholesterol 185 (50-199) mg/dL HDL Cholesterol 74 H (40-59) mg/dL Cholesterol/HDL Ratio 2.50 % CBC 12/03/21 12/04/21 Range/Units 22:10 05:34 WBC 4.3 L 4.1 L (4.5-11.0) K/mm3 RBC 4.72 3.98 (3.65-5.03) M/mm3 Hgb 11.5 10.2 (10.1-14.3) gm/dl Hct 36.9 30.5 D (30.3-42.9) % Plt Count 314 279 (140-440) K/mm3 Lymph # (Auto) 1.4 (1.2-5.4) K/mm3 [place] # (Auto) 0.6 (0.0-0.8) K/mm3 Eos # (Auto) 0.0 (0.0-0.4) K/mm3 Baso # (Auto) 0.0 (0.0-0.1) K/mm3 Comprehensive Metabolic Panel 12/03/21 12/04/21 Range/Units 22:10 05:37 Sodium 141 143 (137-145) mmol/L Potassium 3.6 4.4 D (3.6-5.0) mmol/L Chloride 105.6 108.5 H (98-107) mmol/L Carbon Dioxide 23 25 (22-30) mmol/L BUN 9 7 (7-17) mg/dL Creatinine 0.8 0.6 (0.6-1.2) mg/dL Glucose 121 H 95 (65-100) mg/dL Calcium 8.9 8.9 (8.4-10.2) mg/dL AST 17 (5-40) units/L ALT 13 (7-56) units/L Alkaline Phosphatase 144 H (35-129) units/L Total Protein 7.1 (6.3-8.2) g/dL Albumin 3.9 (3.9-5) g/dL - Imaging and Cardiology Echo: report reviewed Cardiac cath: report reviewed EKG: report reviewed, image reviewed EKG interpretations - Telemetry EKG Rhythm: Sinus Rhythm - EKG Supraventricular dysrhythmia: atrial fibrillation Repolarization changes or abnormalities: nonspecific abnormality, ST segment, and/or T wave Assessment and Plan Assessment: Atypical Chest Pain Transient Rapid AF (not on OAC d/t low AF burden) Type 2 TX Normal Coronaries (via [facility] 12/2019) HTN Obesity S/p Gastric Bypass (02/2021) Plan: Echo pending. CE elevation is consistent with Type 2 TX in the setting of tachyarrhythmia. [facility] in December 2019 revealed normal coronaries. No plans for inpatient ischemic eval at this time. Discontinue IV heparin gtt. Increase Toprol XL to 50mg daily. Hold HCTZ-Lisinopril to allow for titration of BB. Pt seen in conjunction with Dr. Ahn, who agrees with the assessment and plan of care. - Patient Problems (1) Transient atrial fibrillation Current Visit: Yes Status: Acute (2) Type 2 TX (myocardial infarction) Current Visit: Yes Status: Acute
--- NOTE | 2021-12-04 20:44 | Progress Note ---
Assessment and Plan Assessment and plan: VTE prophylaxis?: Chemical Plan of care discussed with patient/family: Yes - Patient Problems (1) NSTEMI (non-ST elevated myocardial infarction) Current Visit: Yes Status: Acute Plan to address problem: Admit the patient to the medical telemetry. Aspirin 325 mg p.o. daily. Lipitor 40 mg p.o. daily. Nitroglycerin as needed. Heparin drip as per protocol. Cardiology evaluation .echocardiogram (2) Elevated troponin Current Visit: Yes Status: Acute Plan to address problem: Aspirin 325 mg p.o. daily. Lipitor 40 mg p.o. daily. Nitroglycerin as needed. Heparin drip as per protocol. Cardiology evaluation .echocardiogram (3) HTN (hypertension) Current Visit: No Status: Chronic Plan to address problem: Metoprolol 25 mg p.o. daily. Lisinopril/hydrochlorothiazide 25 mg p.o. daily. We will monitor the blood pressure closely (4) Paroxysmal atrial fibrillation Current Visit: No Status: Chronic Plan to address problem: Aspirin 325 mg p.o. daily. Lipitor 40 mg p.o. daily. Nitroglycerin as needed. Heparin drip as per protocol. Cardiology evaluation .echocardiogram (5) DVT prophylaxis Current Visit: Yes Status: Acute Plan to address problem: Heparin drip for DVT prophylaxis. Pepcid 20 mg p.o. twice daily for GI prophylaxis. Patient is a full code Advance care planning; We will closely monitor the patient and adjust management as needed Cardiology evaluation recommendations noted and appreciated Discussed with assistant fitness manager Dr. Ahn Plan of care reviewed with the patient and her nurse History Interval history: I have seen and examined the patient in the ER awaiting room assignment Patient complains of mild chest pain, elevated troponins Cardiology evaluation noted and appreciated Vital signs noted Hospitalist Physical - Constitutional Vitals: Temp Pulse Resp BP Pulse Ox 98.7 F 79 19 118/56 99 12/04/21 19:45 12/04/21 19:45 12/04/21 19:45 12/04/21 19:45 12/04/21 19:56 General appearance: Present: no acute distress, well-nourished, obese - EENT Eyes: Present: PERRL, EOM intact - Neck Neck: Present: supple, normal ROM - Respiratory Respiratory effort: normal Respiratory: bilateral: diminished, negative: rales, rhonchi, wheezing - Cardiovascular Rhythm: regular Heart Sounds: Present: S1 & S2 - Extremities Extremities: no ischemia, No edema - Abdominal General gastrointestinal: soft, non-tender, non-distended, normal bowel sounds - Integumentary Integumentary: Present: clear, warm - Psychiatric Psychiatric: appropriate mood/affect, cooperative - Neurologic Neurologic: CNII-XII intact, moves all extremities HEART Score - HEART Score EKG: Non-specific Age: 45-65 Risk factors: > 3 risk factors or hx of atherosclerotic disease Troponin: Troponin T 0.126 ng/mL (0.00-0.029) H* D 12/04/21 12:03 Troponin: 1-3x normal limit - Critical Actions Critical Actions: 4-6 pts:12-16.6% risk of adverse cardiac event. Should be admitted Results - Labs CBC & Chem 7: 12/04/21 05:34 12/04/21 05:37 Labs: Laboratory Last Values WBC 4.1 K/mm3 (4.5-11.0) L 12/04/21 05:34 RBC 3.98 M/mm3 (3.65-5.03) 12/04/21 05:34 Hgb 10.2 gm/dl (10.1-14.3) 12/04/21 05:34 Hct 30.5 % (30.3-42.9) D 12/04/21 05:34 MCV 77 fl (79-97) L 12/04/21 05:34 MCH 26 pg (28-32) L 12/04/21 05:34 MCHC 33 % (30-34) 12/04/21 05:34 RDW 18.2 % (13.2-15.2) H 12/04/21 05:34 Plt Count 279 K/mm3 (140-440) 12/04/21 05:34 Lymph % (Auto) 35.0 % (13.4-35.0) 12/04/21 05:34 [place] % (Auto) 15.0 % (0.0-7.3) H 12/04/21 05:34 Eos % (Auto) 0.9 % (0.0-4.3) 12/04/21 05:34 Baso % (Auto) 0.6 % (0.0-1.8) 12/04/21 05:34 Lymph # (Auto) 1.4 K/mm3 (1.2-5.4) 12/04/21 05:34 [place] # (Auto) 0.6 K/mm3 (0.0-0.8) 12/04/21 05:34 Eos # (Auto) 0.0 K/mm3 (0.0-0.4) 12/04/21 05:34 Baso # (Auto) 0.0 K/mm3 (0.0-0.1) 12/04/21 05:34 Add Manual Diff Complete 12/03/21 22:10 Total Counted 100 12/03/21 22:10 Seg Neutrophils % 48.5 % (40.0-70.0) 12/04/21 05:34 Seg Neuts % (Manual) 70.0 % (40.0-70.0) 12/03/21 22:10 Band Neutrophils % 0 % 12/03/21 22:10 Lymphocytes % (Manual) 25.0 % (13.4-35.0) 12/03/21 22:10 Reactive Lymphs % (Man) 0 % 12/03/21 22:10 Monocytes % (Manual) 5.0 % (0.0-7.3) 12/03/21 22:10 Eosinophils % (Manual) 0 % (0.0-4.3) 12/03/21 22:10 Basophils % (Manual) 0 % (0.0-1.8) 12/03/21 22:10 Metamyelocytes % 0 % 12/03/21 22:10 Myelocytes % 0 % 12/03/21 22:10 Promyelocytes % 0 % 12/03/21 22:10 Blast Cells % 0 % 12/03/21 22:10 Nucleated RBC % Not Reportable 12/03/21 22:10 Seg Neutrophils # 2.0 K/mm3 (1.8-7.7) 12/04/21 05:34 Seg Neutrophils # Man 3.0 K/mm3 (1.8-7.7) 12/03/21 22:10 Band Neutrophils # 0.0 K/mm3 12/03/21 22:10 Lymphocytes # (Manual) 1.1 K/mm3 (1.2-5.4) L 12/03/21 22:10 Abs React Lymphs (Man) 0.0 K/mm3 12/03/21 22:10 Monocytes # (Manual) 0.2 K/mm3 (0.0-0.8) 12/03/21 22:10 Eosinophils # (Manual) 0.0 K/mm3 (0.0-0.4) 12/03/21 22:10 Basophils # (Manual) 0.0 K/mm3 (0.0-0.1) 12/03/21 22:10 Metamyelocytes # 0.0 K/mm3 12/03/21 22:10 Myelocytes # 0.0 K/mm3 12/03/21 22:10 Promyelocytes # 0.0 K/mm3 12/03/21 22:10 Blast Cells # 0.0 K/mm3 12/03/21 22:10 WBC Morphology Not Reportable 12/03/21 22:10 Hypersegmented Neuts Not Reportable 12/03/21 22:10 Hyposegmented Neuts Not Reportable 12/03/21 22:10 Hypogranular Neuts Not Reportable 12/03/21 22:10 Smudge Cells Not Reportable 12/03/21 22:10 Toxic Granulation Not Reportable 12/03/21 22:10 Toxic Vacuolation Not Reportable 12/03/21 22:10 Dohle Bodies Not Reportable 12/03/21 22:10 Pelger-Huet Anomaly Not Reportable 12/03/21 22:10 Sherie Rods Not Reportable 12/03/21 22:10 Platelet Estimate Consistent w auto 12/03/21 22:10 Clumped Platelets Not Reportable 12/03/21 22:10 Plt Clumps, EDTA Not Reportable 12/03/21 22:10 Large Platelets Not Reportable 12/03/21 22:10 Giant Platelets Not Reportable 12/03/21 22:10 Platelet Satelliting Not Reportable 12/03/21 22:10 Plt Morphology Comment Not Reportable 12/03/21 22:10 RBC Morphology Not Reportable 12/03/21 22:10 Dimorphic RBCs Not Reportable 12/03/21 22:10 Polychromasia Not Reportable 12/03/21 22:10 Hypochromasia 1+ 12/03/21 22:10 Poikilocytosis Not Reportable 12/03/21 22:10 Anisocytosis 1+ 12/03/21 22:10 Microcytosis 1+ 12/03/21 22:10 Macrocytosis Not Reportable 12/03/21 22:10 Spherocytes Not Reportable 12/03/21 22:10 Pappenheimer Bodies Not Reportable 12/03/21 22:10 Sickle Cells Not Reportable 12/03/21 22:10 Target Cells Not Reportable 12/03/21 22:10 Tear Drop Cells Rare 12/03/21 22:10 Ovalocytes Few 12/03/21 22:10 Helmet Cells Not Reportable 12/03/21 22:10 [place] Bodies Not Reportable 12/03/21 22:10 [place] Rings Not Reportable 12/03/21 22:10 Fatimah Cells Not Reportable 12/03/21 22:10 Bite Cells Not Reportable 12/03/21 22:10 Crenated Cell Not Reportable 12/03/21 22:10 Elliptocytes Few 12/03/21 22:10 Acanthocytes (Spur) Not Reportable 12/03/21 22:10 Rouleaux Not Reportable 12/03/21 22:10 Hemoglobin C Crystals Not Reportable 12/03/21 22:10 Schistocytes Not Reportable 12/03/21 22:10 Malaria parasites Not Reportable 12/03/21 22:10 Ernesto Bodies Not Reportable 12/03/21 22:10 Hem Pathologist Commnt No 12/03/21 22:10 PT 12.9 Sec. (12.2-14.9) 12/04/21 05:34 INR 0.86 (0.87-1.13) L 12/04/21 05:34 APTT 29.0 Sec. (24.2-36.6) 12/04/21 05:34 D-Dimer 278.32 ng/mlDDU (0-234) H 12/03/21 22:10 Heparin Anti-Xa Level 0.38 U.I./ml (0.3-0.7) 12/04/21 16:30 Sodium 143 mmol/L (137-145) 12/04/21 05:37 Potassium 4.4 mmol/L (3.6-5.0) D 12/04/21 05:37 Chloride 108.5 mmol/L (98-107) H 12/04/21 05:37 Carbon Dioxide 25 mmol/L (22-30) 12/04/21 05:37 Anion Gap 14 mmol/L 12/04/21 05:37 BUN 7 mg/dL (7-17) 12/04/21 05:37 Creatinine 0.6 mg/dL (0.6-1.2) 12/04/21 05:37 Estimated GFR > 60 ml/min 12/04/21 05:37 BUN/Creatinine Ratio 12 % 12/04/21 05:37 Glucose 95 mg/dL (65-100) 12/04/21 05:37 Ketones Quantitative Negative (Negative) 12/03/21 22:10 Lactic Acid 1.10 mmol/L (0.7-2.0) 12/04/21 03:19 Calcium 8.9 mg/dL (8.4-10.2) 12/04/21 05:37 Magnesium 1.90 mg/dL (1.7-2.3) 12/03/21 22:10 Total Bilirubin 0.20 mg/dL (0.1-1.2) 12/03/21 22:10 AST 17 units/L (5-40) 12/03/21 22:10 ALT 13 units/L (7-56) 12/03/21 22:10 Alkaline Phosphatase 144 units/L (35-129) H 12/03/21 22:10 Total Creatine Kinase 58 units/L (30-135) 12/03/21 22:10 CK-MB (CK-2) 2.9 ng/mL (0.0-4.0) 12/03/21 22:10 CK-MB (CK-2) Rel Index 5.0 (0-4) H 12/03/21 22:10 Troponin T 0.126 ng/mL (0.00-0.029) H* D 12/04/21 12:03 C-Reactive Protein 0.30 mg/dL (0.00-1.30) 12/03/21 22:10 Total Protein 7.1 g/dL (6.3-8.2) 12/03/21 22:10 Albumin 3.9 g/dL (3.9-5) 12/03/21 22:10 Albumin/Globulin Ratio 1.2 % 12/03/21 22:10 Triglycerides 54 mg/dL (2-149) 12/03/21 22:10 Cholesterol 185 mg/dL (50-199) 12/03/21 22:10 LDL Cholesterol Direct 97 mg/dL (50-130) 12/03/21 22:10 HDL Cholesterol 74 mg/dL (40-59) H 12/03/21 22:10 Cholesterol/HDL Ratio 2.50 % 12/03/21 22:10 Lipase 30 units/L (13-60) 12/03/21 22:10 Urine Color Yellow (Yellow) 12/03/21 21:58 Urine Turbidity Clear (Clear) 12/03/21 21:58 Specific [place] (Man) 1.010 (1.003-1.030) 12/03/21 21:58 Ur Protein (Man) Negative mg/dL (Negative) 12/03/21 21:58 Ur Ketones (Man) Negative (Negative) 12/03/21 21:58 Ur Nitrite (Man) Negative (Negative) 12/03/21 21:58 Ur Reducing Substances Not Reportable 12/03/21 21:58 Urine Bilirubin (Man) Negative (Negative) 12/03/21 21:58 Urine Ictotest Not Reportable 12/03/21 21:58 Leukocyte Esterase (Man) Negative (Negative) 12/03/21 21:58 Urine WBC (Auto) 7.0 /HPF (0.0-6.0) H 12/03/21 21:58 Urine RBC (Auto) 2.0 /HPF (0.0-6.0) 12/03/21 21:58 U Epithel Cells (Auto) 1.0 /HPF (0-13.0) 12/03/21 21:58 Urine RBC (Manual) Negative (Negative) 12/03/21 21:58 Urine Mucus Few /HPF 12/03/21 21:58 Urine Opiates Screen Negative 12/03/21 21:58 Urine Methadone Screen Negative 12/03/21 21:58 Ur Barbiturates Screen Negative 12/03/21 21:58 Ur Phencyclidine Scrn Negative 12/03/21 21:58 Ur Amphetamines Screen Negative 12/03/21 21:58 U Benzodiazepines Scrn Negative 12/03/21 21:58 Urine Cocaine Screen Negative 12/03/21 21:58 U Marijuana (THC) Screen Negative 12/03/21 21:58 Drugs of Abuse Note Disclamer 12/03/21 21:58 Microbiology: Microbiology 12/03/21 22:10 Peripheral/Venous Blood Culture - Preliminary Culture in Progress 12/03/21 22:10 Peripheral/Venous Blood Culture - Preliminary Culture in Progress Reinoso/IV: Voiding Method Toilet Active Medications - Current Medications Current Medications: Generic Name Dose Route Start Last Admin Trade Name Freq PRN Reason Stop Dose Admin Acetaminophen 650 mg 12/04/21 05:31 Acetaminophen 325 Mg Tab PO Q6H PRN Pain, Mild (1-3) Aspirin 325 mg 12/05/21 10:00 Aspirin Ec 325 Mg Tab PO QDAY [facility] Atorvastatin Calcium 40 mg 12/04/21 22:00 Atorvastatin 40 Mg Tab PO QHS [facility] Heparin Sodium (Porcine) 5,000 unit 12/04/21 22:00 Heparin 5,000 Unit/1 Ml Vial SUB-Q Q8HR [facility] Metoprolol Succinate 50 mg 12/05/21 10:00 Metoprolol Succinate Xl 25 Mg Tab PO QDAY [facility] Morphine Sulfate 2 mg 12/04/21 05:31 Morphine 4 Mg/1 Ml Inj IV Q5MIN PRN Chest Pain unrelieved by NTG Nitroglycerin 0.4 mg 12/04/21 05:31 Nitroglycerin 0.4 Mg Tab Subl SL Q5M PRN Chest Pain Pantoprazole Sodium 40 mg 12/04/21 10:00 12/04/21 10:50 Pantoprazole 40 Mg Tab PO 40 mg QDAY [facility] Administration Sodium Chloride 10 ml 12/04/21 05:31 Sodium Chloride 0.9% 10 Ml Flush Syringe IV PRN PRN LINE FLUSH Tramadol HCl 50 mg 12/04/21 05:31 Tramadol 50 Mg Tab PO Q6H PRN Pain, Moderate (4-6)
[2021-12-04] MEDS: HEPARIN 5,000 UNIT/1 ML VIAL SUB-Q SCH (22:06)
[2021-12-05] MEDS: HEPARIN 5,000 UNIT/1 ML VIAL SUB-Q SCH ×2 (05:57→16:23)
[2021-12-05] MEDS: PANTOPRAZOLE 40 MG TAB PO SCH (09:35)
[2021-12-05] MEDS ORDERED: METOPROLOL SUCCINATE XL 25 MG TAB PO SCH (10:00)
[2021-12-05] MEDS ORDERED: ASPIRIN EC 325 MG TAB PO SCH (10:00)
--- NOTE | 2021-12-05 11:12 | Progress Note ---
Assessment and Plan Assessment and plan: (1) NSTEMI (non-ST elevated myocardial infarction) Current Visit: Yes Status: Acute Plan to address problem: Admit the patient to the medical telemetry. Aspirin 325 mg p.o. daily. Lipitor 40 mg p.o. daily. Nitroglycerin as needed. Heparin drip as per protocol. Cardiology evaluation .echocardiogram (2) Elevated troponin Current Visit: Yes Status: Acute Plan to address problem: Aspirin 325 mg p.o. daily. Lipitor 40 mg p.o. daily. Nitroglycerin as needed. Heparin drip as per protocol. Cardiology evaluation .echocardiogram (3) HTN (hypertension) Current Visit: No Status: Chronic Plan to address problem: Metoprolol 25 mg p.o. daily. Lisinopril/hydrochlorothiazide 25 mg p.o. daily. We will monitor the blood pressure closely (4) Paroxysmal atrial fibrillation Current Visit: No Status: Chronic Plan to address problem: Aspirin 325 mg p.o. daily. Lipitor 40 mg p.o. daily. Nitroglycerin as needed. Heparin drip as per protocol. Cardiology evaluation .echocardiogram (5) DVT prophylaxis Current Visit: Yes Status: Acute Plan to address problem: Heparin drip for DVT prophylaxis. Pepcid 20 mg p.o. twice daily for GI prophy laxis. Patient is a full code Advance care planning; We will closely monitor the patient and adjust management as needed Cardiology evaluation recommendations noted and appreciated Discussed with dye padder operator Dr. Ahn Plan of care reviewed with the patient and her nurse Hospitalist Physical - Constitutional Vitals: Temp Pulse Resp BP Pulse Ox 97.9 F 64 18 124/68 99 12/05/21 07:44 12/05/21 07:44 12/05/21 07:44 12/05/21 07:44 12/05/21 07:44 General appearance: Present: no acute distress, well-nourished, obese HEART Score - HEART Score EKG: Non-specific Age: 45-65 Risk factors: > 3 risk factors or hx of atherosclerotic disease Troponin: Troponin T 0.126 ng/mL (0.00-0.029) H* D 12/04/21 12:03 Troponin: 1-3x normal limit - Critical Actions Critical Actions: 4-6 pts:12-16.6% risk of adverse cardiac event. Should be admitted Results - Labs CBC & Chem 7: 09/10/22 05:34 12/04/21 05:37 Labs: Laboratory Last Values WBC 4.1 K/mm3 (4.5-11.0) L 12/04/21 05:34 RBC 3.98 M/mm3 (3.65-5.03) 12/04/21 05:34 Hgb 10.2 gm/dl (10.1-14.3) 12/04/21 05:34 Hct 30.5 % (30.3-42.9) D 12/04/21 05:34 MCV 77 fl (79-97) L 12/04/21 05:34 MCH 26 pg (28-32) L 12/04/21 05:34 MCHC 33 % (30-34) 12/04/21 05:34 RDW 18.2 % (13.2-15.2) H 12/04/21 05:34 Plt Count 279 K/mm3 (140-440) 12/04/21 05:34 Lymph % (Auto) 35.0 % (13.4-35.0) 12/04/21 05:34 [place] % (Auto) 15.0 % (0.0-7.3) H 12/04/21 05:34 Eos % (Auto) 0.9 % (0.0-4.3) 12/04/21 05:34 Baso % (Auto) 0.6 % (0.0-1.8) 12/04/21 05:34 Lymph # (Auto) 1.4 K/mm3 (1.2-5.4) 12/04/21 05:34 [place] # (Auto) 0.6 K/mm3 (0.0-0.8) 12/04/21 05:34 Eos # (Auto) 0.0 K/mm3 (0.0-0.4) 12/04/21 05:34 Baso # (Auto) 0.0 K/mm3 (0.0-0.1) 12/04/21 05:34 Add Manual Diff Complete 12/03/21 22:10 Total Counted 100 12/03/21 22:10 Seg Neutrophils % 48.5 % (40.0-70.0) 12/04/21 05:34 Seg Neuts % (Manual) 70.0 % (40.0-70.0) 12/03/21 22:10 Band Neutrophils % 0 % 12/03/21 22:10 Lymphocytes % (Manual) 25.0 % (13.4-35.0) 12/03/21 22:10 Reactive Lymphs % (Man) 0 % 12/03/21 22:10 Monocytes % (Manual) 5.0 % (0.0-7.3) 12/03/21 22:10 Eosinophils % (Manual) 0 % (0.0-4.3) 12/03/21 22:10 Basophils % (Manual) 0 % (0.0-1.8) 12/03/21 22:10 Metamyelocytes % 0 % 12/03/21 22:10 Myelocytes % 0 % 12/03/21 22:10 Promyelocytes % 0 % 12/03/21 22:10 Blast Cells % 0 % 12/03/21 22:10 Nucleated RBC % Not Reportable 12/03/21 22:10 Seg Neutrophils # 2.0 K/mm3 (1.8-7.7) 12/04/21 05:34 Seg Neutrophils # Man 3.0 K/mm3 (1.8-7.7) 12/03/21 22:10 Band Neutrophils # 0.0 K/mm3 12/03/21 22:10 Lymphocytes # (Manual) 1.1 K/mm3 (1.2-5.4) L 12/03/21 22:10 Abs React Lymphs (Man) 0.0 K/mm3 12/03/21 22:10 Monocytes # (Manual) 0.2 K/mm3 (0.0-0.8) 12/03/21 22:10 Eosinophils # (Manual) 0.0 K/mm3 (0.0-0.4) 12/03/21 22:10 Basophils # (Manual) 0.0 K/mm3 (0.0-0.1) 12/03/21 22:10 Metamyelocytes # 0.0 K/mm3 12/03/21 22:10 Myelocytes # 0.0 K/mm3 12/03/21 22:10 Promyelocytes # 0.0 K/mm3 12/03/21 22:10 Blast Cells # 0.0 K/mm3 12/03/21 22:10 WBC Morphology Not Reportable 12/03/21 22:10 Hypersegmented Neuts Not Reportable 12/03/21 22:10 Hyposegmented Neuts Not Reportable 12/03/21 22:10 Hypogranular Neuts Not Reportable 12/03/21 22:10 Smudge Cells Not Reportable 12/03/21 22:10 Toxic Granulation Not Reportable 12/03/21 22:10 Toxic Vacuolation Not Reportable 12/03/21 22:10 Dohle Bodies Not Reportable 12/03/21 22:10 Pelger-Huet Anomaly Not Reportable 12/03/21 22:10 Sherie Rods Not Reportable 12/03/21 22:10 Platelet Estimate Consistent w auto 12/03/21 22:10 Clumped Platelets Not Reportable 12/03/21 22:10 Plt Clumps, EDTA Not Reportable 12/03/21 22:10 Large Platelets Not Reportable 12/03/21 22:10 Giant Platelets Not Reportable 12/03/21 22:10 Platelet Satelliting Not Reportable 12/03/21 22:10 Plt Morphology Comment Not Reportable 12/03/21 22:10 RBC Morphology Not Reportable 12/03/21 22:10 Dimorphic RBCs Not Reportable 12/03/21 22:10 Polychromasia Not Reportable 12/03/21 22:10 Hypochromasia 1+ 12/03/21 22:10 Poikilocytosis Not Reportable 12/03/21 22:10 Anisocytosis 1+ 12/03/21 22:10 Microcytosis 1+ 12/03/21 22:10 Macrocytosis Not Reportable 12/03/21 22:10 Spherocytes Not Reportable 12/03/21 22:10 Pappenheimer Bodies Not Reportable 12/03/21 22:10 Sickle Cells Not Reportable 12/03/21 22:10 Target Cells Not Reportable 12/03/21 22:10 Tear Drop Cells Rare 12/03/21 22:10 Ovalocytes Few 12/03/21 22:10 Helmet Cells Not Reportable 12/03/21 22:10 [place] Bodies Not Reportable 12/03/21 22:10 [place] Rings Not Reportable 12/03/21 22:10 Fatimah Cells Not Reportable 12/03/21 22:10 Bite Cells Not Reportable 12/03/21 22:10 Crenated Cell Not Reportable 12/03/21 22:10 Elliptocytes Few 12/03/21 22:10 Acanthocytes (Spur) Not Reportable 12/03/21 22:10 Rouleaux Not Reportable 12/03/21 22:10 Hemoglobin C Crystals Not Reportable 12/03/21 22:10 Schistocytes Not Reportable 12/03/21 22:10 Malaria parasites Not Reportable 12/03/21 22:10 Ernesto Bodies Not Reportable 12/03/21 22:10 Hem Pathologist Commnt No 12/03/21 22:10 PT 12.9 Sec. (12.2-14.9) 12/04/21 05:34 INR 0.86 (0.87-1.13) L 12/04/21 05:34 APTT 29.0 Sec. (24.2-36.6) 12/04/21 05:34 D-Dimer 278.32 ng/mlDDU (0-234) H 12/03/21 22:10 Heparin Anti-Xa Level 0.38 U.I./ml (0.3-0.7) 12/04/21 16:30 Sodium 143 mmol/L (137-145) 12/04/21 05:37 Potassium 4.4 mmol/L (3.6-5.0) D 12/04/21 05:37 Chloride 108.5 mmol/L (98-107) H 12/04/21 05:37 Carbon Dioxide 25 mmol/L (22-30) 12/04/21 05:37 Anion Gap 14 mmol/L 12/04/21 05:37 BUN 7 mg/dL (7-17) 12/04/21 05:37 Creatinine 0.6 mg/dL (0.6-1.2) 12/04/21 05:37 Estimated GFR > 60 ml/min 12/04/21 05:37 BUN/Creatinine Ratio 12 % 12/04/21 05:37 Glucose 95 mg/dL (65-100) 12/04/21 05:37 Ketones Quantitative Negative (Negative) 12/03/21 22:10 Lactic Acid 1.10 mmol/L (0.7-2.0) 12/04/21 03:19 Calcium 8.9 mg/dL (8.4-10.2) 12/04/21 05:37 Magnesium 1.90 mg/dL (1.7-2.3) 12/03/21 22:10 Total Bilirubin 0.20 mg/dL (0.1-1.2) 12/03/21 22:10 AST 17 units/L (5-40) 12/03/21 22:10 ALT 13 units/L (7-56) 12/03/21 22:10 Alkaline Phosphatase 144 units/L (35-129) H 12/03/21 22:10 Total Creatine Kinase 58 units/L (30-135) 12/03/21 22:10 CK-MB (CK-2) 2.9 ng/mL (0.0-4.0) 12/03/21 22:10 CK-MB (CK-2) Rel Index 5.0 (0-4) H 12/03/21 22:10 Troponin T 0.126 ng/mL (0.00-0.029) H* D 12/04/21 12:03 C-Reactive Protein 0.30 mg/dL (0.00-1.30) 12/03/21 22:10 Total Protein 7.1 g/dL (6.3-8.2) 12/03/21 22:10 Albumin 3.9 g/dL (3.9-5) 12/03/21 22:10 Albumin/Globulin Ratio 1.2 % 12/03/21 22:10 Triglycerides 54 mg/dL (2-149) 12/03/21 22:10 Cholesterol 185 mg/dL (50-199) 12/03/21 22:10 LDL Cholesterol Direct 97 mg/dL (50-130) 12/03/21 22:10 HDL Cholesterol 74 mg/dL (40-59) H 12/03/21 22:10 Cholesterol/HDL Ratio 2.50 % 12/03/21 22:10 Lipase 30 units/L (13-60) 12/03/21 22:10 Urine Color Yellow (Yellow) 12/03/21 21:58 Urine Turbidity Clear (Clear) 12/03/21 21:58 Specific [place] (Man) 1.010 (1.003-1.030) 12/03/21 21:58 Ur Protein (Man) Negative mg/dL (Negative) 12/03/21 21:58 Ur Ketones (Man) Negative (Negative) 12/03/21 21:58 Ur Nitrite (Man) Negative (Negative) 12/03/21 21:58 Ur Reducing Substances Not Reportable 12/03/21 21:58 Urine Bilirubin (Man) Negative (Negative) 12/03/21 21:58 Urine Ictotest Not Reportable 12/03/21 21:58 Leukocyte Esterase (Man) Negative (Negative) 12/03/21 21:58 Urine WBC (Auto) 7.0 /HPF (0.0-6.0) H 12/03/21 21:58 Urine RBC (Auto) 2.0 /HPF (0.0-6.0) 12/03/21 21:58 U Epithel Cells (Auto) 1.0 /HPF (0-13.0) 12/03/21 21:58 Urine RBC (Manual) Negative (Negative) 12/03/21 21:58 Urine Mucus Few /HPF 12/03/21 21:58 Urine Opiates Screen Negative 12/03/21 21:58 Urine Methadone Screen Negative 12/03/21 21:58 Ur Barbiturates Screen Negative 12/03/21 21:58 Ur Phencyclidine Scrn Negative 12/03/21 21:58 Ur Amphetamines Screen Negative 12/03/21 21:58 U Benzodiazepines Scrn Negative 12/03/21 21:58 Urine Cocaine Screen Negative 12/03/21 21:58 U Marijuana (THC) Screen Negative 12/03/21 21:58 Drugs of Abuse Note Disclamer 12/03/21 21:58 Microbiology: Microbiology 12/03/21 22:10 Peripheral/Venous Blood Culture - Preliminary NO GROWTH AFTER 24 HOURS 12/03/21 22:10 Peripheral/Venous Blood Culture - Preliminary NO GROWTH AFTER 24 HOURS Reinoso/IV: Voiding Method Toilet Active Medications - Current Medications Current Medications: Generic Name Dose Route Start Last Admin Trade Name Freq PRN Reason Stop Dose Admin Acetaminophen 650 mg 12/04/21 05:31 Acetaminophen 325 Mg Tab PO Q6H PRN Pain, Mild (1-3) Aspirin 325 mg 12/05/21 10:00 12/05/21 09:34 Aspirin Ec 325 Mg Tab PO 325 mg QDAY ILIANA Administration Atorvastatin Calcium 40 mg 12/04/21 22:00 12/04/21 22:06 Atorvastatin 40 Mg Tab PO 40 mg QHS ILIANA Administration Heparin Sodium (Porcine) 5,000 unit 12/04/21 22:00 12/05/21 05:57 Heparin 5,000 Unit/1 Ml Vial SUB-Q 5,000 unit Q8HR ILIANA Administration Metoprolol Succinate 50 mg 12/05/21 10:00 12/05/21 09:35 Metoprolol Succinate Xl 25 Mg Tab PO 50 mg QDAY ILIANA Administration Morphine Sulfate 2 mg 12/04/21 05:31 Morphine 4 Mg/1 Ml Inj IV Q5MIN PRN Chest Pain unrelieved by NTG Nitroglycerin 0.4 mg 12/04/21 05:31 Nitroglycerin 0.4 Mg Tab Subl SL Q5M PRN Chest Pain Pantoprazole Sodium 40 mg 12/04/21 10:00 12/05/21 09:35 Pantoprazole 40 Mg Tab PO 40 mg QDAY ILIANA Administration Sodium Chloride 10 ml 12/04/21 05:31 Sodium Chloride 0.9% 10 Ml Flush Syringe IV PRN PRN LINE FLUSH Tramadol HCl 50 mg 12/04/21 05:31 Tramadol 50 Mg Tab PO Q6H PRN Pain, Moderate (4-6)
--- NOTE | 2021-12-05 13:48 | Electrocardiograph Report ---
[facility] Test Date: 2021-12-04 Test Time: 11:55:46 Pat Name: ALEJANDRO PERKINS Department: Room: A472 1 Gender: F Credit Adjuster: HAYLEY : 1965 Requested By: LUBNA ABBOTT Order Number: [id number] Reading MD: Walker Ahn Measurements Intervals [place] Rate: 72 P: 16 IA: 155 QRS: 19 QRSD: 93 T: 19 QT: 396 QTc: 435 Interpretive Statements Sinus rhythm Posterior infarct, old Borderline ST elevation, anterolateral leads No previous ECG available for comparison Electronically Signed On 12-05-2021 13:47:56 EDT by Walker Ahn
--- NOTE | 2021-12-05 13:49 | Electrocardiograph Report ---
[facility] Test Date: 2021-12-04 Test Time: 13:40:28 Pat Name: ALEJANDRO PERKINS Department: Room: A472 1 Gender: F Beauty Operator Apprentice: HAYLEY : 1965 Requested By: LUBNA ABBOTT Order Number: [id number] Reading MD: Walker Ahn Measurements Intervals [place] Rate: 85 P: 18 RI: 152 QRS: 27 QRSD: 82 T: 66 QT: 381 QTc: 453 Interpretive Statements Sinus rhythm No significant change from EKG done 11:55 hours,12/04/21. Electronically Signed On 12-05-2021 13:49:26 EDT by Walker Ahn
--- NOTE | 2021-12-05 15:17 | Progress Note ---
Assessment and Plan Assessment: Atypical Chest Pain Transient Rapid AF (not on OAC d/t low AF burden) Type 2 [place] Normal Coronaries (via [facility] 12/2019) HTN Obesity S/p Gastric Bypass (02/2021) Plan: Echo reviewed - LVEF 55-60%, mild TR. CE elevation is consistent with Type 2 [place] in the setting of tachyarrhythmia. [facility] in December 2019 revealed normal coronaries. No plans for inpatient ischemic eval at this time. Continue Toprol XL 50mg daily. Do not resume HCTZ-Lisinopril at discharge. Currently stable cardiac status. No objection to discharge from a Cardiology standpoint. Follow-up with Dr. Hernández in 1-2 weeks ([phone]). Pt seen in conjunction with Dr. Ahn, who agrees with the assessment and plan of care. - Patient Problems (1) Transient atrial fibrillation Current Visit: Yes Status: Acute (2) Type 2 WY (myocardial infarction) Current Visit: Yes Status: Acute Subjective Date of service: 12/05/21 Principal diagnosis: Type 2 WY Interval history: No further chest pain or other cardiac complaints. Feeling good and wants to go home. Objective Vital Signs Temp Pulse Resp BP Pulse Ox 12/05/21 11:45 98.3 F 77 18 115/55 97 12/05/21 10:00 100 12/05/21 07:44 97.9 F 64 18 124/68 99 12/05/21 07:18 96 12/05/21 04:43 97.9 F 20 126/61 12/05/21 00:19 98.6 F 74 20 122/67 98 12/04/21 23:00 96 12/04/21 22:00 76 12/04/21 19:56 99 12/04/21 19:45 98.7 F 79 19 118/56 96 12/04/21 15:25 98.3 F 74 18 117/62 100 - Physical Examination HEENT: Positive: EOMI, Normocephaly Neck: Negative: JVD/HJR Cardiac: Positive: Reg Rate and Rhythm, S1/S2 Lungs: Positive: clear to auscultation Neuro: Positive: Grossly Intact Abdomen: Positive: Soft. Negative: Tender Skin: Negative: Rash Musculoskeletal: No Pain Extremities: Present: warm. Absent: edema - Imaging and Cardiology EKG: report reviewed, image reviewed Echo: report reviewed Cardiac cath: report reviewed - Telemetry EKG Rhythm: Sinus Rhythm - EKG Supraventricular dysrhythmia: atrial fibrillation Repolarization changes or abnormalities: nonspecific abnormality, ST segment, and/or T wave
[2021-12-05 16:46] VITALS: BP 134/79
--- NOTE | 2021-12-05 16:58 | Discharge Summary ---
Providers - Providers Date of Admission: 12/04/21 05:32 Date of discharge: 12/05/21 Attending physician: DAYANARA ALVAREZ 12/04/21 Consult to Cardiac Rehabilitation [CONS] Routine Reason For Exam: Phase I 12/04/21 08:39 Consult to Physician [CONS] Routine Comment: Consulting Provider: RADHA RICH Physician Instructions: Reason For Exam: Non-ST elevation [facility] Primary care physician: CELINA ROSAS Hospitalization Reason for admission: Chest pain/A. fib with RVR Condition: Stable Pertinent studies: chest x-ray; no acute findings noted CTA chest no CT evidence of PE no acute abnormality noted Echocardiogram; LV ejection fraction 50 to 60% Hospital course: 56-year-old female patient with significant past medical history of paroxysmal atrial fibrillation hypertension was admitted through emergency room with chest pain initial work-up is consistent with non-ST elevation [facility] patient had gastric bypass surgery in 02/2021 Came in with chest pain, and A. fib with rapid ventricular rate converted to sinus rhythm after IV Lopressor in the ER. Patient follows with shop coordinator Dr. Hernández. Patient was evaluated by shop coordinator, medications optimized/patient had heart cath with normal coronaries 2019. Cardiology felt that patient does not need chronic anticoagulation for her A. fib due to low A. fib burden.. Patient optimized medication advised to discontinue hydrochlorothiazide lisinopril discharge and follow-up per schedule Patient is hemodynamically and clinically stable at discharge Discharge diagnosis: --NSTEMI (non-ST elevated myocardial infarction) Resolved, negative heart cath 12/2019 --Elevated troponin Nonspecific, resolved -- Paroxysmal atrial fibrillation Now in sinus, continue metoprolol, aspirin, no indication for chronic anticoagulation due to low A. fib burden per cardiology --HTN (hypertension) Well-controlled, continue current antihypertensives and as needed medications -- Peripheral neuropathy Continue gabapentin -- Dyslipidemia Continue statin and low-cholesterol diet -- Obesity BMI 38.9 (5) DVT prophylaxis Diet modification exercise as tolerated and weight reduction When medically stable Disposition: 01 HOME / SELF CARE / HOMELESS Final Discharge Diagnosis (Prints w/discharge instructions): Non-ST elevation [facility]. Elevated troponin. Paroxysmal afibrillation. Hypertension. Peripheral neuropathy. Dyslipidemia. Obesity BMI 38.9 Time spent for discharge: 35 minutes Core Measure Documentation - Palliative Care Palliative Care/ Comfort Measures: Not Applicable - Core Measures Any of the following diagnoses?: none Exam - Constitutional Vitals: Temp Pulse Resp BP Pulse Ox 98.7 F 69 18 134/79 94 12/05/21 15:59 12/05/21 15:59 12/05/21 15:59 12/05/21 15:59 12/05/21 15:59 General appearance: Present: no acute distress, well-nourished - EENT Eyes: Present: PERRL, EOM intact - Neck Neck: Present: supple, normal ROM - Respiratory Respiratory effort: normal Respiratory: bilateral: diminished, negative: rales, rhonchi, wheezing - Cardiovascular Rhythm: regular Heart Sounds: Present: S1 & S2 - Extremities Extremities: no ischemia, No edema - Abdominal General gastrointestinal: Present: soft, non-tender, non-distended, normal bowel sounds - Integumentary Integumentary: Present: clear, warm - Musculoskeletal Musculoskeletal: strength equal bilaterally - Psychiatric Psychiatric: appropriate mood/affect, cooperative - Neurologic Neurologic: CNII-XII intact, moves all extremities Plan Activity: advance as tolerated Diet: other (Cardiac diet as tolerated) Additional Instructions: Follow with shop coordinator Dr. Hernández in 1-2 weeks ([phone]). If you have worsening symptoms contact MD or go to the nearest emergency room as needed. Strongly advised to comply with medications, diet, follow-up visits. Advised diet modification, exercise as tolerated and weight reduction when you are medically stable Follow up with: CELINA ROSAS MD [Primary Care Provider] - 3-5 Days ALBAN HERNÁNDEZ MD [Staff Physician] - 14 Days Prescriptions: Aspirin EC [Ecotrin] 325 mg PO QDAY #30 tablet AtorvaSTATin [Lipitor] 40 mg PO QHS #30 tablet Metoprolol Xl [Metoprolol SUCCINATE ER TAB] 50 mg PO QDAY #30 tablet
--- NOTE | 2021-12-07 09:42 | Electrocardiograph Report ---
[facility] Test Date: 2021-12-03 Test Time: 20:19:57 Pat Name: ALEJANDRO PERKINS Department: Room: A472 1 Gender: F Display Designer: MARCIA : 1965 Requested By: NANCY KELLY Order Number: [id number] Reading MD: Nigel Daniel Measurements Intervals [place] Rate: 124 P: [place]: QRS: 36 QRSD: 85 T: 56 QT: 358 QTc: 515 Interpretive Statements Atrial fibrillation Borderline ST depression, diffuse leads No previous ECG available for comparison Electronically Signed On 12-07-2021 9:42:08 EDT by Nigel Daniel
== END 2021-12-05 18:54 | disposition home or self-care (01) ==
LOC: ED 19:23 → INTOOBSV 12-04 05:32 → 4A 12-04 05:32
PROVIDERS: ADMIT Hospitalist; ATTEND Internal Medicine
DX: I21.4 Non-ST elevation (NSTEMI) myocardial infarction (principal); I10 Essential (primary) hypertension; I48.0 Paroxysmal atrial fibrillation; G62.9 Polyneuropathy, unspecified; I25.2 Old myocardial infarction; E66.9 Obesity, unspecified; E78.5 Hyperlipidemia, unspecified; R07.89 Other chest pain; R77.8 Other specified abnormalities of plasma proteins; Z87.442 Personal history of urinary calculi; Z90.49 Acquired absence of other specified parts of digestive tract; Z79.899 Other long term (current) drug therapy; Z98.890 Other specified postprocedural states; Z98.84 Bariatric surgery status; Z68.38 Body mass index [BMI] 38.0-38.9, adult
CPT/HCPCS: 36415; 71045; 71275; 80048; 80053; 80061; 80307; 81001; 82010; 82140; 82550; 82553; 83690; 83735; 84484; 85014; 85018; 85025; 85379; 85520; 85610; 85730; 86140; 87040; 93005; 96361; 96365; 96366; 96372; 96375; 96376; 99285; C8929; G0378; J1644; J7030; Q9967; 85007; 93306; J3490